=== PATIENT | male | born 1950 | race Two or more races ===

== ENCOUNTER 2017-11-01 16:59 | Inpatient (IN) | payer MEDICARE, MEDICAID ==
[~2017-11-01] VITALS: Ht 157.5 cm; Wt 76.2 kg
[2017-11-01 17:12] VITALS: BP 107/71
[2017-11-01] MEDS ORDERED: Metoprolol 5mg/5ml Inj IVP SCH (17:30)
[2017-11-01] MEDS ORDERED: Aspirin Baby 81mg ORAL ONE (17:30)
[2017-11-01 17:53] LABS: BASOPHILS % (AUTO) 0.4 % (0.0-2.0); EOSINOPHILS % (AUTO) 0.1 % (0.0-3.0); HEMATOCRIT 48.2 % (42.0-52.0); HEMOGLOBIN 16.1 G/DL (14.2-18.0); LYMPHOCYTES % (AUTO) 9.9 % (20.0-45.0); MEAN CORPUSCULAR VOLUME 93 FL (80-99); MONOCYTES % (AUTO) 7.1 % (1.0-10.0); NEUTROPHILS % (AUTO) 82.6 % (45.0-75.0); PLATELET COUNT 296 K/UL (150-450); RED BLOOD COUNT 5.16 M/UL (4.70-6.10); RED CELL DISTRIBUTION WIDTH 11.4 % (11.6-14.8); WHITE BLOOD COUNT 17.3 K/UL (4.8-10.8)
[2017-11-01 17:58] LABS: ANION GAP 6 mmol/L (5-15); BLOOD UREA NITROGEN 19 mg/dL (7-18); CALCIUM 8.9 MG/DL (8.5-10.1); CARBON DIOXIDE 27 MMOL/L (21-32); CHLORIDE 107 MMOL/L (98-107); CREATININE 0.9 MG/DL (0.55-1.30); POTASSIUM 4.4 MMOL/L (3.5-5.1); SODIUM 140 MMOL/L (136-145)
[2017-11-01 18:08] LABS: APPEARANCE,URINE CLEAR; BILIRUBIN, URINE NEGATIVE (NEGATIVE); COLOR,URINE PALE YELLOW; GLUCOSE, URINE (UA) NEGATIVE (NEGATIVE); KETONES,URINE NEGATIVE (NEGATIVE); LEUKOCYTE ESTERASE ,URINE NEGATIVE (NEGATIVE); NITRITE,URINE NEGATIVE (NEGATIVE); PH,URINE 7 (4.5-8.0); PROTEIN,URINE NEGATIVE (NEGATIVE); UROBILINOGEN,URINE NORMAL MG/DL (0.0-1.0)
[2017-11-01 18:10] LABS: ALANINE AMINOTRANSFERASE 32 U/L (12-78); ALBUMIN 3.2 G/DL (3.4-5.0); ALKALINE PHOSPHATASE 61 U/L (46-116); ASPARTATE AMINO TRANSFERASE 10 U/L (15-37); BILIRUBIN,TOTAL 0.4 MG/DL (0.2-1.0); CKMB 1.5 NG/ML (0.0-3.6); CREATINE KINASE 66 U/L (26-308)
[2017-11-01] MEDS ORDERED: DICLOFENAC SODI75 MG ORAL (18:42)
[2017-11-01] MEDS ORDERED: LOSARTAN POTASS50 MG ORAL (18:42)
[2017-11-01] MEDS ORDERED: XANAX2 MG ORAL (18:42)
[2017-11-01] MEDS ORDERED: PROSCAR5 MG ORAL (18:42)
[2017-11-01] MEDS ORDERED: NORCO 10-325 T1 EACH ORAL (18:42)
[2017-11-01] MEDS ORDERED: LEVOTHYROXINE75 MCG ORAL (18:42)
[2017-11-01] MEDS ORDERED: CYMBALTA30 MG ORAL (18:42)
[2017-11-01] MEDS ORDERED: TAMSULOSIN HCL0.4 MG ORAL (18:42)
[2017-11-01] MEDS ORDERED: PANTOPRAZOLE SO40 MG ORAL (18:48)
--- NOTE | 2017-11-01 18:51 | Diagnostic Imaging Report ---
EXAM: XR Chest, 1 View CLINICAL HISTORY: Chest pain TECHNIQUE: Frontal view of the chest. COMPARISON: 11/01/2017 10610 FINDINGS: Lungs: Hypoventilatory lungs. No consolidation. Pleural space: Unremarkable. No pneumothorax. Heart: Unremarkable. No cardiomegaly. Mediastinum: Unremarkable. Bones/joints: No acute osseous abnormality. Tubes, lines and devices: Telemetry leads overlie the patient. IMPRESSION: Hypoventilatory exam without evidence of acute cardiopulmonary disease.
[2017-11-01] MEDS ORDERED: MELOXICAM15 MG PO (18:58)
[2017-11-01] MEDS ORDERED: ATORVASTATIN CA20 MG ORAL (18:58)
[2017-11-01 19:05] VITALS: BP 119/61
[2017-11-01] MEDS ORDERED: cefTRIAXone 1 GM in NS 55 ML IVPB ONE (19:30)
[2017-11-01] MEDS ORDERED: dilTIAZem HCl 25mg/5ml Inj IVP ONE (19:45)
[2017-11-01] MEDS ORDERED: Enoxaparin 80mg Inj SUBQ ONE (20:30)
[2017-11-01 20:33] VITALS: BP 108/71
[2017-11-01] MEDS ORDERED: Nitroglycerin Subl 0.4mg tab SL PRN (22:00)
--- NOTE | 2017-11-01 22:01 | Consultation ---
Consult Note Assessment/Plan DICT # [id number] Ben Cehema MD Nov 01, 2017 22:01
[2017-11-01] MEDS ORDERED: HYDROcodone/Acetamin 10/325 tab ORAL PRN (22:15)
[2017-11-01] MEDS ORDERED: Zolpidem 5mg tab ORAL PRN (22:30)
[2017-11-01] MEDS: dilTIAZem HCl 30mg tab ORAL SCH (22:51)
[2017-11-01] MEDS: Morphine Sulfate 4mg/ml Inj IVP PRN (22:55)
--- NOTE | 2017-11-01 23:00 | Consultation ---
DATE OF CONSULTATION: 11/01/2017 PULMONARY CONSULTATION CONSULTING PHYSICIAN: Ben Cheema M.D. REFERRING PHYSICIAN: Fatimah Bernal M.D. REASON FOR CONSULTATION: Shortness of breath. HISTORY OF PRESENT ILLNESS: The patient is a 67-year-old male, nonsmoker with history of hypertension, hyperlipidemia, hypothyroidism, and BPH, who presented earlier this morning actually with chest pain and shortness of breath, but then left and came back. He has left-sided chest pain, worse with exertion and associated shortness of breath. No fevers or chills. No headache, dizziness, nausea, vomiting, diarrhea, constipation, abdominal pain, or other complaints. He does not have known history of AFib, but he was in AFib with RVR. He was otherwise afebrile. He actually is currently rate controlled, but still in AFib, saturating well on room air. His labs were only remarkable for an elevated white count. His troponin was negative as was his lactic acid. The remainder of his laboratories were normal. His chest x-ray was unremarkable. The patient was given Rocephin and also diltiazem for rate control in the ER and started on Lovenox. He has no other complaints. PAST MEDICAL HISTORY: 1. Hypertension. 2. Hyperlipidemia. 3. BPH. 4. Hypothyroidism. PAST SURGICAL HISTORY: Hernia repair. ALLERGIES: No known drug allergies. MEDICATIONS: [id number] medications reviewed. Current medications reviewed. SOCIAL HISTORY: No tobacco, alcohol, or drug use. FAMILY HISTORY: Noncontributory. REVIEW OF SYSTEMS: Negative other than history of present illness. PHYSICAL EXAMINATION: VITAL SIGNS: Temperature 97.7, pulse 90, blood pressure 108/71, respiratory rate 21, saturation 97% on room air. GENERAL: This is a well-developed, well-nourished male in no acute distress. Awake, alert, and oriented x3. HEENT: Normocephalic and atraumatic. Oropharynx is clear with moist mucous membranes. NECK: Supple without lymphadenopathy or jugular venous distention. CHEST: Clear. HEART: Irregularly irregular. ABDOMEN: Benign. EXTREMITIES: No cyanosis, clubbing, or edema. ANCILLARY DATA: Laboratories reviewed. Chest x-ray within normal limits. EKG, AFib. ASSESSMENT: The patient is a 67-year-old male, nonsmoker with history of hypertension, hyperlipidemia, hypothyroidism, presenting with atypical chest pain in AFib with RVR. It is unclear if he has had AFib in the past or if this is new. I agree with the ER's plan to anticoagulate the patient. We will admit him to the hospital, rule out ACS, work up his atrial fibrillation more. He will be seen in consultation with Electrophysiology service. PROBLEM LIST: 1. Atypical chest pain. 2. Atrial fibrillation, admitted with RVR, now rate controlled. 3. Hypertension. 4. Hyperlipidemia. 5. Hypothyroidism. 6. BPH. TREATMENT PLAN: 1. Admit to telemetry. 2. Rule out ACS. 3. Check duplex of the lower extremities and D-dimer to evaluate for venous thromboembolism. 4. Check TSH and U-tox. 5. Diltiazem for rate control for now. 6. Continue anticoagulation. 7. Echocardiogram. 8. Electrophysiology/Cardiology evaluation. 9. Monitor volumes. 10. Panculture and continue Rocephin for now. 11. DVT prophylaxis is low-molecular weight heparin. 12. The patient is Full Code. Dr. Bernal, thank you for allowing me to assist in the care of your patient. If I may be of any assistance in the future, please do not hesitate to ask. Ben Cheema M.D. : Becky JOB#: [id number] CC:
[2017-11-02] VITALS: BP 124/76
[2017-11-02] MEDS ORDERED: ALPRAZolam 0.25mg tab ORAL ONE
--- NOTE | 2017-11-02 00:26 | Emergency Room Report ---
History of Present Illness General Chief Complaint: Chest Pain Source: Patient Present Illness HPI Patient is a 67-year-old male brought in by EMS after recurrent chest pain. Patient had been seen earlier in the day and had left AGAINST MEDICAL ADVICE. Patient had noted to have a prior history of atrial fibrillation. He had been having recurrence of chest pain since several of prior to arrival. He reports having chronic rapid heartbeat. Patient reports having the generalized chest pain. This did not radiate. The patient denies recent stress test. He had prior history of high cholesterol but had had this controlled with medications. Allergies: Coded Allergies: No Known Allergies (Unverified , 11/01/17) Patient History Past Medical History: see triage record Reviewed Nursing Documentation: PMH: Agreed; PSxH: Agreed Nursing Documentation-PMH Hx Hypertension: Yes - high cholesterol Hx COPD: No - ARTHRITIS History Of Psychiatric Problem: Yes - anxiety Review of Systems All Other Systems: limited - by poor historian Physical Exam Vital Signs Date Time Temp Pulse Resp B/P (MAP) Pulse Ox O2 Delivery O2 Flow Rate FiO2 11/01/17 16:55 98.2 118 18 128/79 98 Room Air 98.2 Sp02 EP Interpretation: reviewed, normal General Appearance: normal inspection, well appearing, no apparent distress, alert, GCS 15, non-toxic Head: atraumatic ENT: normal ENT inspection, hearing grossly normal, normal voice Neck: normal inspection, full range of motion, supple, no bony tend Respiratory: normal inspection, lungs clear, normal breath sounds, no respiratory distress, no retraction, no wheezing Cardiovascular #1: no edema, tachycardia Gastrointestinal: normal inspection, normal bowel sounds, non tender, soft, no guarding, no hernia Genitourinary: no CVA tenderness Musculoskeletal: normal inspection, back normal, normal range of motion Neurologic: normal inspection, alert, oriented x3, responsive, clinical laboratory manager III-XII nml as tested, speech normal Psychiatric: normal inspection, judgement/insight normal, mood/affect normal Skin: normal inspection, normal color, no rash Medical Decision Making Diagnostic Impression: Primary Impression: ACS (acute coronary syndrome) Additional Impression: Atrial fibrillation with RVR ER Course The patient presented for chest pain. Differential diagnosis included but was not limited to acute coronary syndrome, pulmonary embolism, pneumonia, aortic dissection, shingles, pneumothorax, aortic dissection, esophageal rupture, pericarditis. Because of complexity of patient's case laboratory testing and imaging studies were ordered. Patient was given aspirin. The patient was given IV metoprolol. He was anticoagulated with Lovenox after discussion with Dr. Cheema. The patient be admitted to the hospital for further evaluation and treatment. At the time of admission patient denied any chest pain. The patient was noted to have elevated white blood count was given IV antibiotics.Dr. Cheema was contacted for inpatient management Labs Test 11/01/17 17:19 11/01/17 17:31 11/01/17 17:49 11/01/17 17:50 Urine Opiates Screen Negative (NEGATIVE) Urine Barbiturates Screen Negative (NEGATIVE) Phencyclidine (PCP) Screen Negative (NEGATIVE) Urine Amphetamines Screen Negative (NEGATIVE) Urine Benzodiazepines Screen Positive (NEGATIVE) Urine Cocaine Screen Negative (NEGATIVE) Urine Marijuana (THC) Screen Negative (NEGATIVE) White Blood Count 17.3 K/UL (4.8-10.8) Red Blood Count 5.16 M/UL (4.70-6.10) Hemoglobin 16.1 G/DL (14.2-18.0) Hematocrit 48.2 % (42.0-52.0) Mean Corpuscular Volume 93 FL (80-99) Mean Corpuscular Hemoglobin 31.3 PG (27.0-31.0) Mean Corpuscular Hemoglobin Concent 33.5 G/DL (32.0-36.0) Red Cell Distribution Width 11.4 % (11.6-14.8) Platelet Count 296 K/UL (150-450) Mean Platelet Volume 9.8 FL (6.5-10.1) Neutrophils (%) (Auto) 82.6 % (45.0-75.0) Lymphocytes (%) (Auto) 9.9 % (20.0-45.0) Monocytes (%) (Auto) 7.1 % (1.0-10.0) Eosinophils (%) (Auto) 0.1 % (0.0-3.0) Basophils (%) (Auto) 0.4 % (0.0-2.0) Prothrombin Time 10.1 SEC (9.30-11.50) Prothromb Time International Ratio 1.0 (0.9-1.1) Activated Partial Thromboplast Time 27 SEC (23-33) Sodium Level 140 MMOL/L (136-145) Potassium Level 4.4 MMOL/L (3.5-5.1) Chloride Level 107 MMOL/L (98-107) Carbon Dioxide Level 27 MMOL/L (21-32) Anion Gap 6 mmol/L (5-15) Blood Urea Nitrogen 19 mg/dL (7-18) Creatinine 0.9 MG/DL (0.55-1.30) Estimat Glomerular Filtration Rate > 60 mL/min (>60) Glucose Level 132 MG/DL (74-106) Calcium Level 8.9 MG/DL (8.5-10.1) Total Bilirubin 0.4 MG/DL (0.2-1.0) Aspartate Amino Transf (AST/SGOT) 10 U/L (15-37) Alanine Aminotransferase (ALT/SGPT) 32 U/L (12-78) Alkaline Phosphatase 61 U/L (46-116) Total Creatine Kinase 66 U/L (26-308) Creatine Kinase MB 1.5 NG/ML (0.0-3.6) Creatine Kinase MB Relative Index 2.2 Troponin I 0.002 ng/mL (0.000-0.056) Pro-B-Type Natriuretic Peptide 248 pg/mL (0-125) Total Protein 6.4 G/DL (6.4-8.2) Albumin 3.2 G/DL (3.4-5.0) Globulin 3.2 g/dL Albumin/Globulin Ratio 1.0 (1.0-2.7) Urine Color Pale yellow Urine Appearance Clear Urine pH 7 (4.5-8.0) Urine Specific [place] 1.010 (1.005-1.035) Urine Protein Negative (NEGATIVE) Urine Glucose (UA) Negative (NEGATIVE) Urine Ketones Negative (NEGATIVE) Urine Occult Blood Negative (NEGATIVE) Urine Nitrite Negative (NEGATIVE) Urine Bilirubin Negative (NEGATIVE) Urine Urobilinogen Normal MG/DL (0.0-1.0) Urine Leukocyte Esterase Negative (NEGATIVE) D-Dimer 0.19 mg/L FEU (0.00-0.49) Hemoglobin A1c 5.9 % (4.3-6.0) Thyroid Stimulating Hormone (TSH) 1.325 uiU/mL (0.358-3.740) Test 11/01/17 19:42 Lactic Acid Level 1.80 mmol/L (0.4-2.0) EKG Diagnostic Results Rate: tachycardiac, other - afib 115 Rhythm: other - afib ST Segments: no acute changes ASA given to the pt in ED: Yes Rhythm Strip Diag. Results EP Interpretation: yes Rhythm: no PVC's, no ectopy, other - afib RVR rate 118 Chest X-Ray Diagnostic Results Chest X-Ray Diagnostic Results : Chest X-Ray Ordered: Yes # of Views/Limited/Complete: 1 View Indication: Chest Pain EP Interpretation: No Interpretation: no consolidation, no effusion, no pneumothorax Impression: No acute disease Electronically Signed by: Electronically signed by Dr. Sanford Alarcon M.D. Last Vital Signs Date Time Temp Pulse Resp B/P (MAP) Pulse Ox O2 Delivery O2 Flow Rate FiO2 11/01/17 22:51 140 108/71 11/01/17 21:15 97.7 21 97 Room Air 97.7 Status: improved Disposition: ADMITTED INPATIENT Condition: Serious Referrals: Orestes Gallegos M.D. (PCP) Sanford Alarcon MD Nov 02, 2017 00:26
[2017-11-02 04:00] VITALS: BP 111/71
[2017-11-02] MEDS: dilTIAZem HCl 30mg tab ORAL SCH ×3 (05:58→22:11)
[2017-11-02 07:47] LABS: BASOPHILS % (AUTO) 0.3 % (0.0-2.0); EOSINOPHILS % (AUTO) 0.1 % (0.0-3.0); HEMOGLOBIN 15.8 G/DL (14.2-18.0); LYMPHOCYTES % (AUTO) 16.1 % (20.0-45.0); MEAN CORPUSCULAR VOLUME 94 FL (80-99); MONOCYTES % (AUTO) 5.9 % (1.0-10.0); NEUTROPHILS % (AUTO) 77.7 % (45.0-75.0); PLATELET COUNT 280 K/UL (150-450); RED BLOOD COUNT 4.92 M/UL (4.70-6.10); RED CELL DISTRIBUTION WIDTH 11.6 % (11.6-14.8); WHITE BLOOD COUNT 12.1 K/UL (4.8-10.8)
[2017-11-02 08:00] VITALS: BP 129/88
[2017-11-02 08:02] LABS: ALANINE AMINOTRANSFERASE 31 U/L (12-78); ALBUMIN 2.9 G/DL (3.4-5.0); ALBUMIN/GLOBULIN RATIO 0.9 (1.0-2.7); ALKALINE PHOSPHATASE 61 U/L (46-116); ANION GAP 7 mmol/L (5-15); ASPARTATE AMINO TRANSFERASE 12 U/L (15-37); BILIRUBIN,TOTAL 0.3 MG/DL (0.2-1.0); BLOOD UREA NITROGEN 17 mg/dL (7-18); CALCIUM 8.8 MG/DL (8.5-10.1); CARBON DIOXIDE 25 MMOL/L (21-32); CHLORIDE 108 MMOL/L (98-107); CHOLESTEROL 182 MG/DL (< 200); CREATININE 0.8 MG/DL (0.55-1.30); HDL CHOLESTEROL 46 MG/DL (40-60); SODIUM 140 MMOL/L (136-145); TRIGLYCERIDES 74 MG/DL (30-150)
[2017-11-02] MEDS: Losartan 50mg tab ORAL SCH (08:45)
[2017-11-02] MEDS ORDERED: HYDROcodone/Acetamin 10/325 tab ORAL PRN (08:45)
[2017-11-02] MEDS: Enoxaparin 80mg Inj SUBQ SCH ×2 (08:50→22:13)
[2017-11-02] MEDS: Aspirin Baby 81mg ORAL SCH (08:56)
[2017-11-02] MEDS: Diclofenac 75mg tab ORAL SCH ×2 (08:56→18:00)
[2017-11-02] MEDS: DULoxetine 30mg cap ORAL SCH (08:56)
[2017-11-02] MEDS ORDERED: Aspirin Baby 81mg NG SCH (09:00)
[2017-11-02] MEDS ORDERED: Meloxicam 15 MG TAB ORAL SCH (09:00)
--- NOTE | 2017-11-02 09:11 | Pulmonology Progress Note ---
Assessment/Plan Problems: (1) Atrial fibrillation with RVR (2) Chest pain (3) ACS (acute coronary syndrome) Assessment/Plan ASSESSMENT: The patient is a 67-year-old male, nonsmoker with history of hypertension, hyperlipidemia, hypothyroidism, presenting with atypical chest pain in AFib with RVR. It is unclear if he has had AFib in the past or if this is new. I agree with the ER's plan to anticoagulate the patient. We will admit him to the hospital, rule out ACS, work up his atrial fibrillation more. He will be seen in consultation with Electrophysiology service. PROBLEM LIST: 1. Atypical chest pain. 2. Atrial fibrillation, admitted with RVR, now rate controlled. 3. Hypertension. 4. Hyperlipidemia. 5. Hypothyroidism. 6. BPH. TREATMENT PLAN: 1. Continue Dilt for rate control, continue A/C for now, F/U TTE, F/U cards/EPS recs 2. Optimize pulmonary hygiene/mobilize as tolerated 3. F/U Duplex 4. Monitor volumes. 5. Continue CTx for now, F/U Cx's, monitor WCt 6. DVT prophylaxis: LMWH 7. The patient is Full Code. Subjective Allergies: Coded Allergies: No Known Allergies (Unverified , 11/01/17) Subjective AFVSS, in rate controlled AF, stable on RA D-dimer neg, duplex pending, TSH normal, Utox + for BZD No CP, no SOB, no F/C, no CP Objective Last 24 Hour Vital Signs Date Time Temp Pulse Resp B/P (MAP) Pulse Ox O2 Delivery O2 Flow Rate FiO2 11/02/17 08:45 129/88 11/02/17 05:58 99 124/76 11/02/17 04:38 173 11/02/17 04:00 141 11/02/17 04:00 97.0 97 20 111/71 96 Room Air 97.0 11/02/17 00:00 99 11/02/17 00:00 97.0 105 24 124/76 95 Room Air 97.0 11/01/17 22:51 140 108/71 11/01/17 21:15 97.7 90 21 108/71 97 Room Air 97.7 11/01/17 20:33 97.7 90 21 108/71 97 Room Air 97.7 11/01/17 19:56 120 110/85 11/01/17 19:05 120 23 119/61 98 Room Air 11/01/17 17:12 91 22 107/71 98 Room Air 11/01/17 17:11 118 18 Room Air 11/01/17 16:55 98.2 118 18 128/79 98 Room Air 98.2 Intake and Output 11/01/17 11/02/17 19:00 07:00 Intake Total 55 ml Balance 55 ml Intake IV Total 55 ml # Voids 8 General Appearance: WD/WN, no acute distress HEENT: normocephalic, atraumatic, anicteric, mucous membranes moist Respiratory/Chest: chest wall non-tender, lungs clear, normal breath sounds, no respiratory distress Cardiovascular: irregularly irregular Abdomen: normal bowel sounds, soft, non tender, no organomegaly, non distended , no mass Extremities: no cyanosis, no clubbing, no edema Laboratory Tests 11/01/17 17:19: Urine Opiates Screen Negative, Urine Barbiturates Screen Negative, Phencyclidine (PCP) Screen Negative, Urine Amphetamines Screen Negative, Urine Benzodiazepines Screen PositiveH, Urine Cocaine Screen Negative, Urine Marijuana (THC) Screen Negative 11/01/17 17:31: White Blood Count 17.3H, Red Blood Count 5.16, Hemoglobin 16.1, Hematocrit 48.2 , Mean Corpuscular Volume 93, Mean Corpuscular Hemoglobin 31.3H, Mean Corpuscular Hemoglobin Concent 33.5, Red Cell Distribution Width 11.4L, Platelet Count 296, Mean Platelet Volume 9.8, Neutrophils (%) (Auto) 82.6H, Lymphocytes (%) (Auto) 9.9L, Monocytes (%) (Auto) 7.1, Eosinophils (%) (Auto) 0.1, Basophils (%) (Auto) 0.4, Prothrombin Time 10.1, Prothromb Time International Ratio 1.0, Activated Partial Thromboplast Time 27, Sodium Level 140, Potassium Level 4.4, Chloride Level 107, Carbon Dioxide Level 27, Anion Gap 6, Blood Urea Nitrogen 19H, Creatinine 0.9, Estimat Glomerular Filtration Rate > 60, Glucose Level 132H, Calcium Level 8.9, Total Bilirubin 0.4, Aspartate Amino Transf (AST/SGOT) 10L, Alanine Aminotransferase (ALT/SGPT) 32, Alkaline Phosphatase 61, Total Creatine Kinase 66, Creatine Kinase MB 1.5, Creatine Kinase MB Relative Index 2.2, Troponin I 0.002, Pro-B-Type Natriuretic Peptide 248H, Total Protein 6.4, Albumin 3.2L, Globulin 3.2, Albumin/Globulin Ratio 1.0 11/01/17 17:49: Urine Color Pale yellow, Urine Appearance Clear, Urine pH 7, Urine Specific [place] 1.010, Urine Protein Negative, Urine Glucose (UA) Negative, Urine Ketones Negative, Urine Occult Blood Negative, Urine Nitrite Negative, Urine Bilirubin Negative, Urine Urobilinogen Normal, Urine Leukocyte Esterase Negative 11/01/17 17:50: D-Dimer 0.19, Hemoglobin A1c 5.9, Thyroid Stimulating Hormone (TSH) 1.325 11/01/17 19:42: Lactic Acid Level 1.80 11/02/17 05:30: White Blood Count 12.1H, Red Blood Count 4.92, Hemoglobin 15.8, Hematocrit 46.0 , Mean Corpuscular Volume 94, Mean Corpuscular Hemoglobin 32.0H, Mean Corpuscular Hemoglobin Concent 34.2, Red Cell Distribution Width 11.6, Platelet Count 280, Mean Platelet Volume 8.9, Neutrophils (%) (Auto) 77.7H, Lymphocytes ( %) (Auto) 16.1L, Monocytes (%) (Auto) 5.9, Eosinophils (%) (Auto) 0.1, Basophils (%) (Auto) 0.3, Sodium Level 140, Potassium Level 4.0, Chloride Level 108H, Carbon Dioxide Level 25, Anion Gap 7, Blood Urea Nitrogen 17, Creatinine 0.8, Estimat Glomerular Filtration Rate > 60, Glucose Level 120H, Calcium Level 8.8, Total Bilirubin 0.3, Aspartate Amino Transf (AST/SGOT) 12L, Alanine Aminotransferase (ALT/SGPT) 31, Alkaline Phosphatase 61, Total Protein 6.2L, Albumin 2.9L, Globulin 3.3, Albumin/Globulin Ratio 0.9L, Triglycerides Level 74 , Cholesterol Level 182, LDL Cholesterol 134H, HDL Cholesterol 46, Cholesterol/ HDL Ratio 4.0 Current Medications Medications (Trade) Dose Ordered Sig/Adrienne Route PRN Reason Start Time Stop Time Status Last Admin Dose Admin Acetaminophen (Tylenol) 650 mg Q4H PRN ORAL Mild Pain/Temp > 100.5 11/02/17 08:45 12/02/17 08:44 Acetaminophen/ Hydrocodone Bitart ([place] 10/325) 1 tab Q6H PRN ORAL Moderate Pain (Pain Scale 4-6) 11/02/17 08:45 11/09/17 08:44 Aspirin (ASA) 81 mg DAILY ORAL 11/02/17 09:00 12/02/17 08:59 11/02/17 08:56 Atorvastatin Calcium (Lipitor) 20 mg BEDTIME ORAL 11/02/17 21:00 12/02/17 20:59 Ceftriaxone Sodium 1 gm/ Sodium Chloride 55 ml @ 110 mls/hr DAILY IVPB 11/02/17 10:00 11/09/17 09:59 Diclofenac Sodium (Voltaren) 75 mg BID ORAL 11/02/17 09:00 12/02/17 08:59 Diltiazem HCl (Cardizem) 30 mg EVERY 8 HOURS ORAL 11/01/17 22:00 12/01/17 21:59 11/02/17 05:58 Duloxetine HCl (Cymbalta) 60 mg DAILY ORAL 11/02/17 09:00 12/02/17 08:59 Enoxaparin Sodium (Lovenox) 75 mg EVERY 12 HOURS SUBQ 11/02/17 09:00 12/02/17 08:59 11/02/17 08:50 Finasteride (Proscar) 5 mg DAILY ORAL 11/02/17 09:00 12/02/17 08:59 11/02/17 08:35 Levothyroxine Sodium (Synthroid) 50 mcg DAILY@0630 ORAL 11/02/17 06:30 12/02/17 06:29 11/02/17 05:58 Losartan Potassium (Cozaar) 50 mg DAILY ORAL 11/02/17 09:00 12/02/17 08:59 11/02/17 08:45 Metoprolol Tartrate (Lopressor) 5 mg Q5MIN X 3 IVP 11/01/17 17:30 12/01/17 17:29 Morphine Sulfate (Morphine Sulfate) 1 mg Q4H PRN IVP pain 11/01/17 22:45 11/08/17 22:44 11/01/17 22:55 Nitroglycerin (Ntg) 0.4 mg Q5M PRN SL Prn Chest Pain 11/01/17 22:00 12/01/17 21:59 Pantoprazole (Protonix) 40 mg DAILY ORAL 11/02/17 09:00 12/02/17 08:59 11/02/17 08:45 Tamsulosin HCl (Flomax) 0.4 mg BEDTIME ORAL 11/02/17 21:00 12/02/17 20:59 Zolpidem Tartrate (Ambien) 5 mg HSPRN PRN ORAL Insomnia 11/01/17 22:30 11/08/17 22:29 Ben Cheema MD Nov 02, 2017 09:11
[2017-11-02] MEDS: cefTRIAXone 1 GM in NS 55 ML IVPB SCH (10:26)
[2017-11-02 12:00] VITALS: BP 113/69
[2017-11-02 16:15] VITALS: BP 114/84
--- NOTE | 2017-11-02 16:24 | History and Physical ---
History of Present Illness General Date patient seen: Nov 02, 2017 Time patient seen: 13:00 Reason for Hospitalization: Chest Pain Present Illness HPI This is a 67 y/o male with a PMH of HTN, HLD, BPH, and hypothyroidism who presented to ED for recurrent chest pain. Patient had come to the ER a day prior but had left against medical advice. Patient presents with similar symptoms and states that he has been having palpitations chronically but associates it to his anxiety. Reports generalized chest pain. Denies radiation. Denies recent stress test. CXR was negative. Patient's initial troponin was negative but EKG showed Afibb with RVR. Patient was given IV diltiazem and is now on PO diltiazem. Patient has now converted back to ER. Denies sob, n/v, abdominal pain. . Allergies: Coded Allergies: No Known Allergies (Unverified , 11/01/17) Medication History Scheduled Atorvastatin Calcium* (Atorvastatin Calcium*), 20 MG ORAL BEDTIME, (Reported) Diclofenac Sod* (Voltaren*), 75 MG ORAL BID, (Reported) Duloxetine Hcl* (Cymbalta*), 60 MG ORAL DAILY, (Reported) Finasteride* (Proscar*), 5 MG ORAL DAILY, (Reported) Levothyroxine Sodium* (Levothyroxine Sodium*), 50 MCG ORAL DAILY, (Reported) Losartan Potassium* (Losartan Potassium*), 50 MG ORAL DAILY, (Reported) Meloxicam* (Meloxicam*), 15 MG PO DAILY, (Reported) Pantoprazole* (Pantoprazole*), 40 MG ORAL DAILY, (Reported) Tamsulosin Hcl (Tamsulosin Hcl*), 0.4 MG ORAL BEDTIME, (Reported) Scheduled PRN Alprazolam* (Xanax*), 2 MG ORAL TID PRN for For Anxiety, (Reported) Hydrocodone Bit/Acetaminophen 10-325* ([place] 10-325*), 1 TAB ORAL Q6H PRN for For Pain, (Reported) Patient History History Provided By: Patient, Medical Record Healthcare decision maker Amberly Resuscitation status Full Code Advanced Directive on File Review of Systems All Other Systems: negative except mentioned in HPI Physical Exam General Appearance: no apparent distress, alert HEENT: normocephalic, atraumatic, PERRL Neck: non-tender, normal alignment, supple Respiratory/Chest: chest wall non-tender, lungs clear, normal breath sounds Cardiovascular/Chest: normal peripheral pulses, regular rhythm, tachycardia Abdomen: normal bowel sounds, non tender, soft Extremities: normal range of motion, non-tender Skin Exam: normal pigmentation, warm/dry 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, no motor/sensory deficits, alert Last 24 Hour Vital Signs Date Time Temp Pulse Resp B/P (MAP) Pulse Ox O2 Delivery O2 Flow Rate FiO2 11/02/17 16:15 97.7 102 20 114/84 96 Room Air 97.7 11/02/17 14:25 108 118/72 11/02/17 12:00 97.3 89 20 113/69 98 Room Air 97.3 11/02/17 12:00 104 11/02/17 08:45 129/88 11/02/17 08:00 127 11/02/17 08:00 97.2 98 22 129/88 97 Room Air 97.2 11/02/17 05:58 99 124/76 11/02/17 04:38 173 11/02/17 04:00 141 11/02/17 04:00 97.0 97 20 111/71 96 Room Air 97.0 11/02/17 00:00 99 11/02/17 00:00 97.0 105 24 124/76 95 Room Air 97.0 11/01/17 22:51 140 108/71 11/01/17 21:15 97.7 90 21 108/71 97 Room Air 97.7 11/01/17 20:33 97.7 90 21 108/71 97 Room Air 97.7 11/01/17 19:56 120 110/85 11/01/17 19:05 120 23 119/61 98 Room Air 11/01/17 17:12 91 22 107/71 98 Room Air 11/01/17 17:11 118 18 Room Air 11/01/17 16:55 98.2 118 18 128/79 98 Room Air 98.2 Intake and Output 11/01/17 11/02/17 19:00 07:00 Intake Total 55 ml Balance 55 ml Intake IV Total 55 ml # Voids 8 Laboratory Tests Test 11/01/17 17:19 11/01/17 17:31 11/01/17 17:49 11/01/17 17:50 Urine Opiates Screen Negative (NEGATIVE) Urine Barbiturates Screen Negative (NEGATIVE) Phencyclidine (PCP) Screen Negative (NEGATIVE) Urine Amphetamines Screen Negative (NEGATIVE) Urine Benzodiazepines Screen Positive (NEGATIVE) H Urine Cocaine Screen Negative (NEGATIVE) Urine Marijuana (THC) Screen Negative (NEGATIVE) White Blood Count 17.3 K/UL (4.8-10.8) H Red Blood Count 5.16 M/UL (4.70-6.10) Hemoglobin 16.1 G/DL (14.2-18.0) Hematocrit 48.2 % (42.0-52.0) Mean Corpuscular Volume 93 FL (80-99) Mean Corpuscular Hemoglobin 31.3 PG (27.0-31.0) H Mean Corpuscular Hemoglobin Concent 33.5 G/DL (32.0-36.0) Red Cell Distribution Width 11.4 % (11.6-14.8) L Platelet Count 296 K/UL (150-450) Mean Platelet Volume 9.8 FL (6.5-10.1) Neutrophils (%) (Auto) 82.6 % (45.0-75.0) H Lymphocytes (%) (Auto) 9.9 % (20.0-45.0) L Monocytes (%) (Auto) 7.1 % (1.0-10.0) Eosinophils (%) (Auto) 0.1 % (0.0-3.0) Basophils (%) (Auto) 0.4 % (0.0-2.0) Prothrombin Time 10.1 SEC (9.30-11.50) Prothromb Time International Ratio 1.0 (0.9-1.1) Activated Partial Thromboplast Time 27 SEC (23-33) Sodium Level 140 MMOL/L (136-145) Potassium Level 4.4 MMOL/L (3.5-5.1) Chloride Level 107 MMOL/L (98-107) Carbon Dioxide Level 27 MMOL/L (21-32) Anion Gap 6 mmol/L (5-15) Blood Urea Nitrogen 19 mg/dL (7-18) H Creatinine 0.9 MG/DL (0.55-1.30) Estimat Glomerular Filtration Rate > 60 mL/min (>60) Glucose Level 132 MG/DL (74-106) H Calcium Level 8.9 MG/DL (8.5-10.1) Total Bilirubin 0.4 MG/DL (0.2-1.0) Aspartate Amino Transf (AST/SGOT) 10 U/L (15-37) L Alanine Aminotransferase (ALT/SGPT) 32 U/L (12-78) Alkaline Phosphatase 61 U/L (46-116) Total Creatine Kinase 66 U/L (26-308) Creatine Kinase MB 1.5 NG/ML (0.0-3.6) Creatine Kinase MB Relative Index 2.2 Troponin I 0.002 ng/mL (0.000-0.056) Pro-B-Type Natriuretic Peptide 248 pg/mL (0-125) H Total Protein 6.4 G/DL (6.4-8.2) Albumin 3.2 G/DL (3.4-5.0) L Globulin 3.2 g/dL Albumin/Globulin Ratio 1.0 (1.0-2.7) Urine Color Pale yellow Urine Appearance Clear Urine pH 7 (4.5-8.0) Urine Specific Grahn 1.010 (1.005-1.035) Urine Protein Negative (NEGATIVE) Urine Glucose (UA) Negative (NEGATIVE) Urine Ketones Negative (NEGATIVE) Urine Occult Blood Negative (NEGATIVE) Urine Nitrite Negative (NEGATIVE) Urine Bilirubin Negative (NEGATIVE) Urine Urobilinogen Normal MG/DL (0.0-1.0) Urine Leukocyte Esterase Negative (NEGATIVE) D-Dimer 0.19 mg/L FEU (0.00-0.49) Hemoglobin A1c 5.9 % (4.3-6.0) Thyroid Stimulating Hormone (TSH) 1.325 uiU/mL (0.358-3.740) Test 11/01/17 19:42 11/02/17 05:30 Lactic Acid Level 1.80 mmol/L (0.4-2.0) White Blood Count 12.1 K/UL (4.8-10.8) H Red Blood Count 4.92 M/UL (4.70-6.10) Hemoglobin 15.8 G/DL (14.2-18.0) Hematocrit 46.0 % (42.0-52.0) Mean Corpuscular Volume 94 FL (80-99) Mean Corpuscular Hemoglobin 32.0 PG (27.0-31.0) H Mean Corpuscular Hemoglobin Concent 34.2 G/DL (32.0-36.0) Red Cell Distribution Width 11.6 % (11.6-14.8) Platelet Count 280 K/UL (150-450) Mean Platelet Volume 8.9 FL (6.5-10.1) Neutrophils (%) (Auto) 77.7 % (45.0-75.0) H Lymphocytes (%) (Auto) 16.1 % (20.0-45.0) L Monocytes (%) (Auto) 5.9 % (1.0-10.0) Eosinophils (%) (Auto) 0.1 % (0.0-3.0) Basophils (%) (Auto) 0.3 % (0.0-2.0) Sodium Level 140 MMOL/L (136-145) Potassium Level 4.0 MMOL/L (3.5-5.1) Chloride Level 108 MMOL/L (98-107) H Carbon Dioxide Level 25 MMOL/L (21-32) Anion Gap 7 mmol/L (5-15) Blood Urea Nitrogen 17 mg/dL (7-18) Creatinine 0.8 MG/DL (0.55-1.30) Estimat Glomerular Filtration Rate > 60 mL/min (>60) Glucose Level 120 MG/DL (74-106) H Calcium Level 8.8 MG/DL (8.5-10.1) Total Bilirubin 0.3 MG/DL (0.2-1.0) Aspartate Amino Transf (AST/SGOT) 12 U/L (15-37) L Alanine Aminotransferase (ALT/SGPT) 31 U/L (12-78) Alkaline Phosphatase 61 U/L (46-116) Troponin I 0.000 ng/mL (0.000-0.056) Total Protein 6.2 G/DL (6.4-8.2) L Albumin 2.9 G/DL (3.4-5.0) L Globulin 3.3 g/dL Albumin/Globulin Ratio 0.9 (1.0-2.7) L Triglycerides Level 74 MG/DL (30-150) Cholesterol Level 182 MG/DL (< 200) LDL Cholesterol 134 mg/dL (<100) H HDL Cholesterol 46 MG/DL (40-60) Cholesterol/HDL Ratio 4.0 (3.3-4.4) Height (Feet): 5 Height (Inches): 2.00 Weight (Pounds): 168 Medications Current Medications Medications (Trade) Dose Ordered Sig/Adrienne Route PRN Reason Start Time Stop Time Status Last Admin Dose Admin Acetaminophen (Tylenol) 650 mg Q4H PRN ORAL Mild Pain/Temp > 100.5 11/02/17 08:45 12/02/17 08:44 Acetaminophen/ Hydrocodone Bitart ([place] 10/325) 1 tab Q6H PRN ORAL Moderate Pain (Pain Scale 4-6) 11/02/17 08:45 11/09/17 08:44 Aspirin (ASA) 81 mg DAILY ORAL 11/02/17 09:00 12/02/17 08:59 11/02/17 08:56 Atorvastatin Calcium (Lipitor) 20 mg BEDTIME ORAL 11/02/17 21:00 12/02/17 20:59 Ceftriaxone Sodium 1 gm/ Sodium Chloride 55 ml @ 110 mls/hr DAILY IVPB 11/02/17 10:00 11/09/17 09:59 11/02/17 10:26 Diclofenac Sodium (Voltaren) 75 mg BID ORAL 11/02/17 09:00 12/02/17 08:59 Diltiazem HCl (Cardizem) 30 mg EVERY 8 HOURS ORAL 11/01/17 22:00 12/01/17 21:59 11/02/17 14:25 Duloxetine HCl (Cymbalta) 60 mg DAILY ORAL 11/02/17 09:00 12/02/17 08:59 Enoxaparin Sodium (Lovenox) 75 mg EVERY 12 HOURS SUBQ 11/02/17 09:00 12/02/17 08:59 11/02/17 08:50 Finasteride (Proscar) 5 mg DAILY ORAL 11/02/17 09:00 12/02/17 08:59 11/02/17 08:35 Levothyroxine Sodium (Synthroid) 50 mcg DAILY@0630 ORAL 11/02/17 06:30 12/02/17 06:29 11/02/17 05:58 Losartan Potassium (Cozaar) 50 mg DAILY ORAL 11/02/17 09:00 12/02/17 08:59 11/02/17 08:45 Metoprolol Tartrate (Lopressor) 5 mg Q5MIN X 3 IVP 11/01/17 17:30 12/01/17 17:29 Morphine Sulfate (Morphine Sulfate) 1 mg Q4H PRN IVP pain 11/01/17 22:45 11/08/17 22:44 11/01/17 22:55 Nitroglycerin (Ntg) 0.4 mg Q5M PRN SL Prn Chest Pain 11/01/17 22:00 12/01/17 21:59 Pantoprazole (Protonix) 40 mg DAILY ORAL 11/02/17 09:00 12/02/17 08:59 11/02/17 08:45 Tamsulosin HCl (Flomax) 0.4 mg BEDTIME ORAL 11/02/17 21:00 12/02/17 20:59 Zolpidem Tartrate (Ambien) 5 mg HSPRN PRN ORAL Insomnia 11/01/17 22:30 11/08/17 22:29 Assessment/Plan Problem List: (1) Atypical chest pain ICD Codes: R07.89 - Other chest pain SNOMED: 436829662 (2) HTN (hypertension) ICD Codes: I10 - Essential (primary) hypertension SNOMED: 35472158 (3) HLD (hyperlipidemia) ICD Codes: E78.5 - Hyperlipidemia, unspecified SNOMED: 20133574 (4) Allergic rhinitis ICD Codes: J30.9 - Allergic rhinitis, unspecified SNOMED: 05679155 (5) Leukocytosis ICD Codes: D72.829 - Elevated white blood cell count, unspecified SNOMED: 369006898, 377406308 (6) Atrial fibrillation with RVR ICD Codes: I48.91 - Unspecified atrial fibrillation SNOMED: 540061398272525 Status: stable, progressing Assessment/Plan - Admit to inpatient, tele - Cardiology consulted - EKG showing AFcRVR - Trend trops. Trops x 2 negative. - TTE showing LVEF 55% with no wall motion abnormality - Venous duplex BLE negative - start empiric IV ceftriaxone - CXR negative - f/u blood cx, UA - trend WBC 17 --> 12 - s/p IV diltiazem, now on PO diltiazem - continue lovenox - check AM lipid panel and A1c - TSH wnl - resume home meds - pain control and supportive care Thank you, Dr. Cheema, for this wonderful consultation. DVT Prophylaxis: on lovenox Code Status: Full Hospital Classification Declaration: Based on this initial evaluation, and depending on the patient's clinical course, I anticipate that this patient will require hospitalization for 1-2 days for a.fibb with RVR and close respiratory/ hemodynamic monitoring. Disposition: Once the patient is stable to leave the hospital, I anticipate the patient will likely be discharged to the following environment: home with I spent 71 minutes on this patient's case, and 36 minutes were dedicated to counseling and/or care coordination. Discussed with patient/family, nursing staff, SW/CM, primary, and cardiology regarding clinical status, treatment course, and disposition planning. Time of note may not reflect time of encounter. Yaz Hardy NP Nov 02, 2017 16:24
[2017-11-02 20:00] VITALS: BP 121/81
[2017-11-02] MEDS ORDERED: Ocean Nasal Spray 45ml NASAL PRN (21:30)
[2017-11-02] MEDS: Tamsulosin 0.4mg cap ORAL SCH (22:09)
[2017-11-02] MEDS: Morphine Sulfate 4mg/ml Inj IVP PRN (22:09)
[2017-11-03] MEDS: ALPRAZolam 0.25mg tab ORAL PRN ×2 (00:49→22:20)
[2017-11-03 04:00] VITALS: BP 117/68
[2017-11-03] MEDS: dilTIAZem HCl 30mg tab ORAL SCH ×2 (06:27→13:49)
[2017-11-03 08:00] VITALS: BP 152/88
[2017-11-03] MEDS: DULoxetine 30mg cap ORAL SCH (09:00)
[2017-11-03] MEDS: Diclofenac 75mg tab ORAL SCH ×2 (09:00→18:00)
--- NOTE | 2017-11-03 09:01 | Pulmonology Progress Note ---
Assessment/Plan Problems: (1) Atrial fibrillation with RVR (2) Chest pain (3) ACS (acute coronary syndrome) Assessment/Plan ASSESSMENT: The patient is a 67-year-old male, nonsmoker with history of hypertension, hyperlipidemia, hypothyroidism, presenting with atypical chest pain in AFib with RVR. It is unclear if he has had AFib in the past or if this is new. I agree with the ER's plan to anticoagulate the patient. We will admit him to the hospital, rule out ACS, work up his atrial fibrillation more. He will be seen in consultation with Electrophysiology service. PROBLEM LIST: 1. Atypical chest pain. 2. Atrial fibrillation, admitted with RVR, now rate controlled. 3. Hypertension. 4. Hyperlipidemia. 5. Hypothyroidism. 6. BPH. TREATMENT PLAN: 1. Continue Dilt for rate control, continue A/C for now, F/U cards/EPS recs 2. Optimize pulmonary hygiene/mobilize as tolerated 3. F/U Duplex 4. Monitor volumes. 5. Continue CTx for now, F/U Cx's, monitor WCt 6. DVT prophylaxis: LMWH 7. The patient is Full Code. Subjective Allergies: Coded Allergies: No Known Allergies (Unverified , 11/01/17) Subjective AFVSS, was in RVR earlier now in rate controlled AF, stable on RA D-dimer neg, duplex pending, TSH normal, Utox + for BZD No CP, no SOB, no F/C, no CP Objective Last 24 Hour Vital Signs Date Time Temp Pulse Resp B/P (MAP) Pulse Ox O2 Delivery O2 Flow Rate FiO2 11/03/17 06:27 88 117/68 11/03/17 04:00 97.2 88 20 117/68 98 Room Air 97.2 11/03/17 01:27 96 11/03/17 01:19 108 11/03/17 01:17 149 11/03/17 01:14 144 112/77 11/03/17 00:00 133 11/02/17 22:11 109 121/87 11/02/17 20:00 97.0 109 20 121/81 96 Room Air 97.0 11/02/17 20:00 110 11/02/17 16:15 97.7 102 20 114/84 96 Room Air 97.7 11/02/17 16:00 118 11/02/17 14:25 108 118/72 11/02/17 12:00 97.3 89 20 113/69 98 Room Air 97.3 11/02/17 12:00 104 Intake and Output 11/02/17 11/03/17 19:00 07:00 Intake Total 640 ml Balance 640 ml Intake Oral 640 ml # Voids 2 4 General Appearance: WD/WN, no acute distress HEENT: normocephalic, atraumatic, anicteric, mucous membranes moist Respiratory/Chest: chest wall non-tender, lungs clear, normal breath sounds, no respiratory distress, no accessory muscle use Cardiovascular: irregularly irregular Abdomen: normal bowel sounds, soft, non tender, no organomegaly, non distended , no mass Extremities: no cyanosis, no clubbing, no edema Microbiology Date/Time Source Procedure Growth Status 11/01/17 19:35 Blood Blood Culture - Preliminary NO GROWTH AFTER 24 HOURS Resulted 11/01/17 19:10 Blood Blood Culture - Preliminary NO GROWTH AFTER 24 HOURS Resulted Current Medications Medications (Trade) Dose Ordered Sig/Adrienne Route PRN Reason Start Time Stop Time Status Last Admin Dose Admin Acetaminophen (Tylenol) 650 mg Q4H PRN ORAL Mild Pain/Temp > 100.5 11/02/17 08:45 12/02/17 08:44 Acetaminophen/ Hydrocodone Bitart ([place] 10/325) 1 tab Q6H PRN ORAL Moderate Pain (Pain Scale 4-6) 11/02/17 08:45 11/09/17 08:44 Alprazolam (Xanax) 0.25 mg Q6H PRN ORAL For Anxiety 11/03/17 00:45 11/10/17 00:44 11/03/17 00:49 Aspirin (ASA) 81 mg DAILY ORAL 11/02/17 09:00 12/02/17 08:59 11/02/17 08:56 Atorvastatin Calcium (Lipitor) 20 mg BEDTIME ORAL 11/02/17 21:00 12/02/17 20:59 11/02/17 22:10 Ceftriaxone Sodium 1 gm/ Sodium Chloride 55 ml @ 110 mls/hr DAILY IVPB 11/02/17 10:00 11/09/17 09:59 11/02/17 10:26 Diclofenac Sodium (Voltaren) 75 mg BID ORAL 11/02/17 09:00 12/02/17 08:59 Diltiazem HCl (Cardizem) 30 mg EVERY 8 HOURS ORAL 11/01/17 22:00 12/01/17 21:59 11/03/17 06:27 Duloxetine HCl (Cymbalta) 60 mg DAILY ORAL 11/02/17 09:00 12/02/17 08:59 Enoxaparin Sodium (Lovenox) 75 mg EVERY 12 HOURS SUBQ 11/02/17 09:00 12/02/17 08:59 11/02/17 22:13 Finasteride (Proscar) 5 mg DAILY ORAL 11/02/17 09:00 12/02/17 08:59 11/02/17 08:35 Levothyroxine Sodium (Synthroid) 50 mcg DAILY@0630 ORAL 11/02/17 06:30 12/02/17 06:29 11/03/17 06:27 Losartan Potassium (Cozaar) 50 mg DAILY ORAL 11/02/17 09:00 12/02/17 08:59 11/02/17 08:45 Metoprolol Tartrate (Lopressor) 5 mg Q5MIN X 3 IVP 11/01/17 17:30 12/01/17 17:29 11/03/17 01:14 Morphine Sulfate (Morphine Sulfate) 1 mg Q4H PRN IVP pain 11/01/17 22:45 11/08/17 22:44 11/02/17 22:09 Nitroglycerin (Ntg) 0.4 mg Q5M PRN SL Prn Chest Pain 11/01/17 22:00 12/01/17 21:59 Pantoprazole (Protonix) 40 mg DAILY ORAL 11/02/17 09:00 12/02/17 08:59 11/02/17 08:45 Sodium Chloride ([place] Nasal [place]) 1 spray Q4H PRN NASAL For allergies 11/02/17 21:30 12/02/17 21:29 Tamsulosin HCl (Flomax) 0.4 mg BEDTIME ORAL 11/02/17 21:00 12/02/17 20:59 11/02/17 22:09 Zolpidem Tartrate (Ambien) 5 mg HSPRN PRN ORAL Insomnia 11/01/17 22:30 11/08/17 22:29 Ben Cheema MD Nov 03, 2017 09:01
[2017-11-03] MEDS: Aspirin Baby 81mg ORAL SCH (09:54)
[2017-11-03] MEDS: Losartan 50mg tab ORAL SCH (09:54)
[2017-11-03] MEDS: Enoxaparin 80mg Inj SUBQ SCH (09:55)
[2017-11-03] MEDS: cefTRIAXone 1 GM in NS 55 ML IVPB SCH (09:57)
--- NOTE | 2017-11-03 10:05 | Cardiology Report ---
APPROVED REPORT EXAM: Two-dimensional and M-mode echocardiogram with Doppler and color Doppler. INDICATION Altered mental status M-Mode DIMENSIONS IVSd1.2 (0.7-1.1cm)Left Atrium (MM)2.2 (1.6-4.0cm) LVDd3.7 (3.5-5.6cm)Aortic Root3.2 (2.0-3.7cm) PWd1.0 (0.7-1.1cm)Aortic Cusp Exc.1.6 (1.5-2.0cm) LVDs2.5 (2.5-4.0cm) PWs1.9 cm Normal left ventricular chamber size, systolic function and wall motion. Left ventricular ejection fraction estimated to be 55 %. Mild left ventricular hypertrophy. Anterior Echo-free space, may be due to pericardial fat or effusion. All other cardiac chamber sizes are within normal limits. Focal aortic valve sclerosis with adequate cusp excursion. Thickened mitral valve leaflets with normal excursion. Mitral annulus and aortic root calcification. Pulmonic valve not well visualized. Normal tricuspid valve structure. IVC measures at 1.8 cm with physiological collapse. A color flow and spectral Doppler study was performed and revealed: Trace aortic insufficiency. Mild mitral regurgitation. Normal left ventricular diastolic function. Trace tricuspid regurgitation. Tricuspid systolic velocities suggests peak right ventricular systolic pressure of 24 mmHg. No pulmonic regurgitation present.
--- NOTE | 2017-11-03 10:11 | Cardiology Report ---
APPROVED REPORT EKG Measurement Heart [id number] Atrial fibrillation Nonspecific ST and T wave abnormality Abnormal ECG
--- NOTE | 2017-11-03 10:13 | Cardiology Report ---
APPROVED REPORT EKG Measurement Heart [id number] Atrial fibrillation with rapid ventricular response Abnormal ECG
[2017-11-03] MEDS: Norco 5mg/325mg tab ORAL PRN (10:41)
[2017-11-03] MEDS ORDERED: Morphine Sulfate 4mg/ml Inj IVP PRN (10:45)
[2017-11-03 12:00] VITALS: BP 149/89
[2017-11-03 12:18] LABS: ALANINE AMINOTRANSFERASE 35 U/L (12-78); ALBUMIN 3.1 G/DL (3.4-5.0); ALBUMIN/GLOBULIN RATIO 0.9 (1.0-2.7); ALKALINE PHOSPHATASE 61 U/L (46-116); ANION GAP 9 mmol/L (5-15); ASPARTATE AMINO TRANSFERASE 13 U/L (15-37); BILIRUBIN,TOTAL 0.3 MG/DL (0.2-1.0); BLOOD UREA NITROGEN 17 mg/dL (7-18); CALCIUM 8.9 MG/DL (8.5-10.1); CARBON DIOXIDE 24 MMOL/L (21-32); CHLORIDE 105 MMOL/L (98-107); CREATININE 0.8 MG/DL (0.55-1.30); SODIUM 138 MMOL/L (136-145)
[2017-11-03 12:23] LABS: BASOPHILS % (AUTO) 0.5 % (0.0-2.0); EOSINOPHILS % (AUTO) 0.1 % (0.0-3.0); HEMATOCRIT 48.9 % (42.0-52.0); HEMOGLOBIN 16.5 G/DL (14.2-18.0); LYMPHOCYTES % (AUTO) 15.8 % (20.0-45.0); MEAN CORPUSCULAR VOLUME 94 FL (80-99); MONOCYTES % (AUTO) 7.3 % (1.0-10.0); NEUTROPHILS % (AUTO) 76.3 % (45.0-75.0); PLATELET COUNT 318 K/UL (150-450); RED BLOOD COUNT 5.23 M/UL (4.70-6.10); RED CELL DISTRIBUTION WIDTH 11.4 % (11.6-14.8); WHITE BLOOD COUNT 15.5 K/UL (4.8-10.8)
--- NOTE | 2017-11-03 14:34 | General Progress Note ---
Assessment/Plan Problem List: (1) Atypical chest pain ICD Codes: R07.89 - Other chest pain SNOMED: 802145788 (2) HTN (hypertension) ICD Codes: I10 - Essential (primary) hypertension SNOMED: 97494373 (3) HLD (hyperlipidemia) ICD Codes: E78.5 - Hyperlipidemia, unspecified SNOMED: 19763302 (4) Allergic rhinitis ICD Codes: J30.9 - Allergic rhinitis, unspecified SNOMED: 31353604 (5) Leukocytosis ICD Codes: D72.829 - Elevated white blood cell count, unspecified SNOMED: 170301579, 864846409 (6) Atrial fibrillation with RVR ICD Codes: I48.91 - Unspecified atrial fibrillation SNOMED: 726647589487602 Status: stable, progressing Assessment/Plan - Cardiology consulted - EKG showing AFcRVR - Trend trops. Trops x 2 negative. - TTE showing LVEF 55% with no wall motion abnormality - Venous duplex BLE negative - start empiric IV ceftriaxone - CXR negative - f/u blood cx, UA - trend WBC 17 --> 12 - s/p IV diltiazem, now on PO diltiazem - continue lovenox - check AM lipid panel and A1c - TSH wnl - resume home meds - pain control and supportive care Thank you, Dr. Cheema, for this consultation. DVT Prophylaxis: on lovenox Code Status: Full Hospital Classification Declaration: Based on this initial evaluation, and depending on the patient's clinical course, I anticipate that this patient will require hospitalization for 1-2 days for a.fibb with RVR and close respiratory/ hemodynamic monitoring. Disposition: Once the patient is stable to leave the hospital, I anticipate the patient will likely be discharged to the following environment: home with I spent 71 minutes on this patient's case, and 36 minutes were dedicated to counseling and/or care coordination. Discussed with patient/family, nursing staff, SW/CM, primary, and cardiology regarding clinical status, treatment course, and disposition planning. Time of note may not reflect time of encounter. Subjective Date patient seen: Nov 03, 2017 Time patient seen: 14:33 Allergies: Coded Allergies: No Known Allergies (Unverified , 11/01/17) Subjective - had an earlier episode of AFcRVR but now rate controlled - labs pending for today - denies cp, sob Objective Last 24 Hour Vital Signs Date Time Temp Pulse Resp B/P (MAP) Pulse Ox O2 Delivery O2 Flow Rate FiO2 11/03/17 13:49 97 152/88 11/03/17 12:00 97 11/03/17 12:00 98.0 112 20 149/89 98 Room Air 98.0 11/03/17 11:40 97.6 11/03/17 10:41 97.6 11/03/17 09:54 152/88 11/03/17 08:00 97.6 78 20 152/88 98 Room Air 97.6 11/03/17 08:00 145 11/03/17 06:27 88 117/68 11/03/17 04:00 97.2 88 20 117/68 98 Room Air 97.2 11/03/17 01:27 96 11/03/17 01:19 108 11/03/17 01:17 149 11/03/17 01:14 144 112/77 11/03/17 00:00 133 11/02/17 22:11 109 121/87 11/02/17 20:00 97.0 109 20 121/81 96 Room Air 97.0 11/02/17 20:00 110 11/02/17 16:15 97.7 102 20 114/84 96 Room Air 97.7 11/02/17 16:00 118 Intake and Output 11/02/17 11/03/17 18:59 06:59 Intake Total 640 ml Balance 640 ml Intake Oral 640 ml # Voids 2 4 Laboratory Tests 11/03/17 11:05: White Blood Count 15.5H, Red Blood Count 5.23, Hemoglobin 16.5, Hematocrit 48.9 , Mean Corpuscular Volume 94, Mean Corpuscular Hemoglobin 31.6H, Mean Corpuscular Hemoglobin Concent 33.7, Red Cell Distribution Width 11.4L, Platelet Count 318, Mean Platelet Volume 9.4, Neutrophils (%) (Auto) 76.3H, Lymphocytes (%) (Auto) 15.8L, Monocytes (%) (Auto) 7.3, Eosinophils (%) (Auto) 0.1, Basophils (%) (Auto) 0.5, Sodium Level 138, Potassium Level 4.0, Chloride Level 105, Carbon Dioxide Level 24, Anion Gap 9, Blood Urea Nitrogen 17, Creatinine 0.8, Estimat Glomerular Filtration Rate > 60, Glucose Level 111H, Calcium Level 8.9, Total Bilirubin 0.3, Aspartate Amino Transf (AST/SGOT) 13L, Alanine Aminotransferase (ALT/SGPT) 35, Alkaline Phosphatase 61, Total Protein 6.6, Albumin 3.1L, Globulin 3.5, Albumin/Globulin Ratio 0.9L Height (Feet): 5 Height (Inches): 2.00 Weight (Pounds): 168 General Appearance: no apparent distress, alert EENT: PERRL/EOMI, normal ENT inspection Neck: non-tender, normal alignment, supple Cardiovascular: normal peripheral pulses, normal rate, regularly irregular Respiratory/Chest: chest wall non-tender, lungs clear, normal breath sounds Abdomen: normal bowel sounds, non tender, soft 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
--- NOTE | 2017-11-03 14:53 | Physician Query ---
--------- THIS DOCUMENT IS A PERMANENT PART OF THE MEDICAL RECORD --------- PLEASE COMPLETE THE DOCUMENT BEFORE SIGNING Dear Dr. Cheema Date 11/03/2017 [employer]' Name Rob Drummond [employer] Phone#:[phone] Exercise your independent professional judgment when responding to query. Questions asked do not imply particular answer is desired or expected. We greatly appreciate your clarification on this issue. Clinical Documentation States: "Atypical chest pain" is documented in H&P and progress notes Clinical Findings Show: Troponin = 0.00 ECHO: EF = 55% Please document the suspected etiology of Chest Pain: a.Type: []Cardiac []Non-cardiac []Unspecified b.Etiology - cardiac [] Aortic dissection []Mitral valve prolapsed [] Acute myocardial infarction []Spasm of coronary arteries [] Coronary Artery Disease []Pericarditis c.Etiology - non-cardiac [] Anxiety []Pleurisy [] Cancer []Pneumonia, type [] Costochondritis []Pneumothorax [] GERD/Esophagitis []Pulmonary embolism [] Unable to determine []Other: Condition Present on Admission: [] Yes [] No []Clinically Undeterminable Please also document in your Progress Notes and/or Discharge Summary and indicate if the condition was present on admission. MTDD
[2017-11-03 16:00] VITALS: BP 148/82
[2017-11-03] MEDS ORDERED: NS 275ml ONE (17:03)
[2017-11-03] MEDS ORDERED: Tubing IV Secondary IV ONE (17:03)
--- NOTE | 2017-11-03 18:11 | Cardiac Electrophysiology PN ---
Subjective Subjective [id number] Objective Last 24 Hour Vital Signs Date Time Temp Pulse Resp B/P (MAP) Pulse Ox O2 Delivery O2 Flow Rate FiO2 11/03/17 16:00 98.0 80 20 148/82 97 Room Air 98.0 11/03/17 16:00 118 11/03/17 13:49 97 152/88 11/03/17 12:00 97 11/03/17 12:00 98.0 112 20 149/89 98 Room Air 98.0 11/03/17 11:40 97.6 11/03/17 10:41 97.6 11/03/17 09:54 152/88 11/03/17 08:00 97.6 78 20 152/88 98 Room Air 97.6 11/03/17 08:00 145 11/03/17 06:27 88 117/68 11/03/17 04:00 97.2 88 20 117/68 98 Room Air 97.2 11/03/17 01:27 96 11/03/17 01:19 108 11/03/17 01:17 149 11/03/17 01:14 144 112/77 11/03/17 00:00 133 11/02/17 22:11 109 121/87 11/02/17 20:00 97.0 109 20 121/81 96 Room Air 97.0 11/02/17 20:00 110 Intake and Output 11/02/17 11/03/17 19:00 07:00 Intake Total 640 ml Balance 640 ml Intake Oral 640 ml # Voids 2 4 Laboratory Tests Test 11/03/17 11:05 White Blood Count 15.5 K/UL (4.8-10.8) H Red Blood Count 5.23 M/UL (4.70-6.10) Hemoglobin 16.5 G/DL (14.2-18.0) Hematocrit 48.9 % (42.0-52.0) Mean Corpuscular Volume 94 FL (80-99) Mean Corpuscular Hemoglobin 31.6 PG (27.0-31.0) H Mean Corpuscular Hemoglobin Concent 33.7 G/DL (32.0-36.0) Red Cell Distribution Width 11.4 % (11.6-14.8) L Platelet Count 318 K/UL (150-450) Mean Platelet Volume 9.4 FL (6.5-10.1) Neutrophils (%) (Auto) 76.3 % (45.0-75.0) H Lymphocytes (%) (Auto) 15.8 % (20.0-45.0) L Monocytes (%) (Auto) 7.3 % (1.0-10.0) Eosinophils (%) (Auto) 0.1 % (0.0-3.0) Basophils (%) (Auto) 0.5 % (0.0-2.0) Sodium Level 138 MMOL/L (136-145) Potassium Level 4.0 MMOL/L (3.5-5.1) Chloride Level 105 MMOL/L (98-107) Carbon Dioxide Level 24 MMOL/L (21-32) Anion Gap 9 mmol/L (5-15) Blood Urea Nitrogen 17 mg/dL (7-18) Creatinine 0.8 MG/DL (0.55-1.30) Estimat Glomerular Filtration Rate > 60 mL/min (>60) Glucose Level 111 MG/DL (74-106) H Calcium Level 8.9 MG/DL (8.5-10.1) Total Bilirubin 0.3 MG/DL (0.2-1.0) Aspartate Amino Transf (AST/SGOT) 13 U/L (15-37) L Alanine Aminotransferase (ALT/SGPT) 35 U/L (12-78) Alkaline Phosphatase 61 U/L (46-116) Total Protein 6.6 G/DL (6.4-8.2) Albumin 3.1 G/DL (3.4-5.0) L Globulin 3.5 g/dL Albumin/Globulin Ratio 0.9 (1.0-2.7) L Microbiology Date/Time Source Procedure Growth Status 11/01/17 19:35 Blood Blood Culture - Preliminary NO GROWTH AFTER 24 HOURS Resulted 11/01/17 19:10 Blood Blood Culture - Preliminary NO GROWTH AFTER 24 HOURS Resulted Juliocesar Boo MD Nov 03, 2017 18:11
[2017-11-03 18:24] VITALS: BP 114/72
[2017-11-03 20:00] VITALS: BP 137/93
[2017-11-03] MEDS: Tamsulosin 0.4mg cap ORAL SCH (20:43)
[2017-11-03] MEDS ORDERED: Enoxaparin Sodium 300mg/3ml vial SUBQ SCH (21:00)
--- NOTE | 2017-11-03 21:45 | Consultation ---
DATE OF CONSULTATION: 11/03/2017 CARDIOLOGY CONSULTATION CONSULTING PHYSICIAN: Juliocesar Boo M.D. REFERRING PHYSICIAN: Fatimah Bernal M.D. ADDITIONAL REFERRING PHYSICIAN: Ben Cheema M.D. REASON FOR CONSULTATION: hypertension and atrial fibrillation with rapid ventricular response. HISTORY OF PRESENT ILLNESS: The patient is a 67-year-old gentleman with history of hypertension, hyperlipidemia, and hypothyroidism, who presented to the emergency room complaining of chest pain and shortness of breath. The patient also had left-sided chest pain. The patient was found to be in atrial fibrillation with rapid ventricular response with heart rate as high as 180 beats per minute. The patient was admitted and Cardiology consultation was obtained for further evaluation. His troponin was negative and the heart rate became more stable after the patient received Cardizem in the emergency room. Today, his heart rate was as high as 160 beats per minute despite antiarrhythmic therapy. REVIEW OF SYSTEMS: Negative other than what was mentioned in the history of present illness. PAST MEDICAL HISTORY: As mentioned above. MEDICATIONS: Per reconciliation. SOCIAL HISTORY: He lives at home. He does not smoke or drink alcohol. PHYSICAL EXAMINATION: VITAL SIGNS: Blood pressure is 148/82, pulse is 80-118, respirations 18, and he is afebrile. HEAD AND NECK: No JVD. LUNGS: Clear. CARDIOVASCULAR: Irregular S1 and S2 with no gallop or murmur. ABDOMEN: Soft. EXTREMITIES: No pitting edema. LABORATORY AND DIAGNOSTIC DATA: His echocardiogram showed ejection fraction of 55%. His labs show white count 15.5, hemoglobin 16.5, hematocrit of 48.9, and platelet count of 318,000. Sodium 138, potassium 4.0, BUN of 17, creatinine 0.8, and glucose of 111. Troponins are negative x2. ASSESSMENT AND PLAN: 1. Atrial fibrillation with rapid ventricular response. The patient was ruled out for myocardial infarction. Ejection fraction is normal. His urine toxicology screen is positive for benzodiazepine. The patient is already on Lovenox 75 mg subcutaneous b.i.d. for anticoagulation. He is on Cardizem 60 mg every 8 hours which was increased to 60 mg every 6 hours. Follow the patient clinically. 2. hypertension, on losartan 50 mg daily and Cardizem 60 mg q.6 h. 3. Hypothyroidism, on Synthroid. 4. Hyperlipidemia, on Lipitor. 5. Allergic rhinitis. 6. Leukocytosis, currently on antibiotics. White count decreased from 17,000 to 12,000. Thank you very much for allowing me to participate in the care of this patient. Please do not hesitate to contact me for any questions regarding my evaluation. Juliocesar Boo M.D. DR: DANIELLE JOB#: [id number] CC:
[2017-11-03] MEDS ORDERED: Meloxicam 15 MG TAB ORAL PRN ×2 (22:15→23:45)
[2017-11-03] MEDS: dilTIAZem HCl 60mg tab ORAL SCH (23:53)
[2017-11-04] VITALS: BP 137/90
[2017-11-04 04:00] VITALS: BP 110/68
[2017-11-04] MEDS: dilTIAZem HCl 60mg tab ORAL SCH ×3 (06:00→21:46)
[2017-11-04 08:00] VITALS: BP 111/68
[2017-11-04] MEDS: Losartan 50mg tab ORAL SCH (08:38)
[2017-11-04] MEDS: Aspirin Baby 81mg ORAL SCH (08:38)
[2017-11-04] MEDS: cefTRIAXone 1 GM in NS 55 ML IVPB SCH (08:39)
[2017-11-04 08:50] LABS: BASOPHILS % (AUTO) 0.3 % (0.0-2.0); EOSINOPHILS % (AUTO) 0.1 % (0.0-3.0); HEMATOCRIT 49.5 % (42.0-52.0); HEMOGLOBIN 16.8 G/DL (14.2-18.0); LYMPHOCYTES % (AUTO) 14.1 % (20.0-45.0); MEAN CORPUSCULAR VOLUME 93 FL (80-99); MONOCYTES % (AUTO) 5.1 % (1.0-10.0); NEUTROPHILS % (AUTO) 80.5 % (45.0-75.0); PLATELET COUNT 325 K/UL (150-450); RED BLOOD COUNT 5.32 M/UL (4.70-6.10); RED CELL DISTRIBUTION WIDTH 11.6 % (11.6-14.8); WHITE BLOOD COUNT 12.7 K/UL (4.8-10.8)
[2017-11-04] MEDS: Norco 5mg/325mg tab ORAL PRN ×2 (08:56→16:37)
[2017-11-04] MEDS: DULoxetine 30mg cap ORAL SCH (08:58)
--- NOTE | 2017-11-04 09:02 | Pulmonology Progress Note ---
Assessment/Plan Problems: (1) Atrial fibrillation with RVR (2) Chest pain (3) ACS (acute coronary syndrome) Assessment/Plan ASSESSMENT: The patient is a 67-year-old male, nonsmoker with history of hypertension, hyperlipidemia, hypothyroidism, presenting with atypical chest pain in AFib with RVR. It is unclear if he has had AFib in the past or if this is new. I agree with the ER's plan to anticoagulate the patient. We will admit him to the hospital, rule out ACS, work up his atrial fibrillation more. He will be seen in consultation with Electrophysiology service. PROBLEM LIST: 1. Atypical chest pain. 2. Atrial fibrillation, admitted with RVR, now rate controlled. 3. Hypertension. 4. Hyperlipidemia. 5. Hypothyroidism. 6. BPH. TREATMENT PLAN: 1. Continue Dilt per EP for rate control, continue A/C for now, F/U cards/EPS recs 2. Optimize pulmonary hygiene/mobilize as tolerated 3. F/U Duplex 4. Monitor volumes. 5. Continue CTx for now, F/U Cx's, monitor WCt, ID eval 6. DVT prophylaxis: LMWH 7. The patient is Full Code. Subjective Allergies: Coded Allergies: No Known Allergies (Unverified , 11/01/17) Subjective AFVSS, in AF in and out of RPR Duplex still pending WCt increased No CP, no SOB, no F/C, no CP Objective Last 24 Hour Vital Signs Date Time Temp Pulse Resp B/P (MAP) Pulse Ox O2 Delivery O2 Flow Rate FiO2 11/04/17 08:38 72 111/68 11/04/17 08:38 111/68 11/04/17 08:00 97.7 72 18 111/68 97 Room Air 97.7 11/04/17 04:00 98.2 92 18 110/68 100 Room Air 98.2 11/04/17 04:00 95 11/04/17 00:00 98.4 94 17 137/90 95 Room Air 98.4 11/04/17 00:00 114 11/03/17 23:53 100 137/93 11/03/17 20:00 126 11/03/17 20:00 98.2 100 16 137/93 92 Room Air 98.2 11/03/17 18:24 97.7 107 20 114/72 98 Room Air 97.7 11/03/17 16:00 98.0 80 20 148/82 97 Room Air 98.0 11/03/17 16:00 118 11/03/17 13:49 97 152/88 11/03/17 12:00 97 11/03/17 12:00 98.0 112 20 149/89 98 Room Air 98.0 11/03/17 11:40 97.6 11/03/17 10:41 97.6 11/03/17 09:54 152/88 Intake and Output 11/03/17 11/04/17 19:00 07:00 Intake Total 750 ml Balance 750 ml Intake Oral 750 ml # Voids 4 4 # Bowel Movements 1 General Appearance: WD/WN, no acute distress HEENT: normocephalic, atraumatic, anicteric, mucous membranes moist Respiratory/Chest: chest wall non-tender, lungs clear, normal breath sounds, no respiratory distress, no accessory muscle use Cardiovascular: irregularly irregular Abdomen: normal bowel sounds, soft, non tender, no organomegaly, non distended , no mass Extremities: no cyanosis, no clubbing, no edema Microbiology Date/Time Source Procedure Growth Status 11/01/17 19:35 Blood Blood Culture - Preliminary NO GROWTH AFTER 48 HOURS Resulted 11/01/17 19:10 Blood Blood Culture - Preliminary NO GROWTH AFTER 48 HOURS Resulted Laboratory Tests 11/03/17 11:05: White Blood Count 15.5H, Red Blood Count 5.23, Hemoglobin 16.5, Hematocrit 48.9 , Mean Corpuscular Volume 94, Mean Corpuscular Hemoglobin 31.6H, Mean Corpuscular Hemoglobin Concent 33.7, Red Cell Distribution Width 11.4L, Platelet Count 318, Mean Platelet Volume 9.4, Neutrophils (%) (Auto) 76.3H, Lymphocytes (%) (Auto) 15.8L, Monocytes (%) (Auto) 7.3, Eosinophils (%) (Auto) 0.1, Basophils (%) (Auto) 0.5, Sodium Level 138, Potassium Level 4.0, Chloride Level 105, Carbon Dioxide Level 24, Anion Gap 9, Blood Urea Nitrogen 17, Creatinine 0.8, Estimat Glomerular Filtration Rate > 60, Glucose Level 111H, Calcium Level 8.9, Total Bilirubin 0.3, Aspartate Amino Transf (AST/SGOT) 13L, Alanine Aminotransferase (ALT/SGPT) 35, Alkaline Phosphatase 61, Total Protein 6.6, Albumin 3.1L, Globulin 3.5, Albumin/Globulin Ratio 0.9L 11/04/17 08:05: White Blood Count 12.7H, Red Blood Count 5.32, Hemoglobin 16.8, Hematocrit 49.5 , Mean Corpuscular Volume 93, Mean Corpuscular Hemoglobin 31.5H, Mean Corpuscular Hemoglobin Concent 33.9, Red Cell Distribution Width 11.6, Platelet Count 325, Mean Platelet Volume 9.2, Neutrophils (%) (Auto) 80.5H, Lymphocytes ( %) (Auto) 14.1L, Monocytes (%) (Auto) 5.1, Eosinophils (%) (Auto) 0.1, Basophils (%) (Auto) 0.3, Sodium Level [Pending], Potassium Level [Pending], Chloride Level [Pending], Carbon Dioxide Level [Pending], Blood Urea Nitrogen [ Pending], Creatinine [Pending], Estimat Glomerular Filtration Rate [Pending], Glucose Level [Pending], Calcium Level [Pending], Total Bilirubin [Pending], Aspartate Amino Transf (AST/SGOT) [Pending], Alanine Aminotransferase (ALT/SGPT ) [Pending], Alkaline Phosphatase [Pending], Total Protein [Pending], Albumin [ Pending], Globulin [Pending] Current Medications Medications (Trade) Dose Ordered Sig/Adrienne Route PRN Reason Start Time Stop Time Status Last Admin Dose Admin Acetaminophen (Tylenol) 650 mg Q4H PRN ORAL Temp > 100.5 11/03/17 10:45 12/02/17 10:44 Acetaminophen/ Hydrocodone Bitart ([place] 10/325) 1 tab Q6H PRN ORAL Moderate Pain (Pain Scale 4-6) 11/02/17 08:45 11/09/17 08:44 Acetaminophen/ Hydrocodone Bitart ([place] 5/325) 1 tab Q6H PRN ORAL Mild Pain (Pain Scale 1-3) 11/03/17 10:30 11/10/17 10:29 11/04/17 08:56 Alprazolam (Xanax) 0.25 mg Q6H PRN ORAL For Anxiety 11/03/17 00:45 11/10/17 00:44 11/03/17 22:20 Aspirin (ASA) 81 mg DAILY ORAL 11/02/17 09:00 12/02/17 08:59 11/04/17 08:38 Atorvastatin Calcium (Lipitor) 20 mg BEDTIME ORAL 11/02/17 21:00 12/02/17 20:59 11/03/17 20:43 Ceftriaxone Sodium 1 gm/ Sodium Chloride 55 ml @ 110 mls/hr DAILY IVPB 11/02/17 10:00 11/09/17 09:59 11/04/17 08:39 Diltiazem HCl (Cardizem) 60 mg EVERY 6 HOURS ORAL 11/04/17 00:00 12/01/17 21:59 11/04/17 08:38 Duloxetine HCl (Cymbalta) 60 mg DAILY ORAL 11/02/17 09:00 12/02/17 08:59 Enoxaparin Sodium (Lovenox) 75 mg EVERY 12 HOURS SUBQ 11/03/17 21:00 12/03/17 20:59 11/03/17 20:49 Finasteride (Proscar) 5 mg DAILY ORAL 11/02/17 09:00 12/02/17 08:59 11/04/17 08:37 Levothyroxine Sodium (Synthroid) 50 mcg DAILY@0630 ORAL 11/02/17 06:30 12/02/17 06:29 11/04/17 06:31 Losartan Potassium (Cozaar) 50 mg DAILY ORAL 11/02/17 09:00 12/02/17 08:59 11/04/17 08:38 Meloxicam (Mobic) 15 mg DAILY PRN ORAL Pain 11/03/17 23:45 12/03/17 23:44 11/03/17 23:53 Morphine Sulfate (Morphine Sulfate) 1 mg Q4H PRN IVP Breakthrough Pain 11/03/17 10:45 11/10/17 10:44 Nitroglycerin (Ntg) 0.4 mg Q5M PRN SL Prn Chest Pain 11/01/17 22:00 12/01/17 21:59 Pantoprazole (Protonix) 40 mg DAILY ORAL 11/02/17 09:00 12/02/17 08:59 11/04/17 08:38 Sodium Chloride ([place] Nasal [place]) 1 spray Q4H PRN NASAL For allergies 11/02/17 21:30 12/02/17 21:29 Tamsulosin HCl (Flomax) 0.4 mg BEDTIME ORAL 11/02/17 21:00 12/02/17 20:59 11/03/17 20:43 Zolpidem Tartrate (Ambien) 5 mg HSPRN PRN ORAL Insomnia 11/01/17 22:30 11/08/17 22:29 Ben Cheema MD Nov 04, 2017 09:02
[2017-11-04 09:41] LABS: ALANINE AMINOTRANSFERASE 41 U/L (12-78); ALBUMIN/GLOBULIN RATIO 0.9 (1.0-2.7); ALKALINE PHOSPHATASE 61 U/L (46-116); ANION GAP 8 mmol/L (5-15); ASPARTATE AMINO TRANSFERASE 15 U/L (15-37); BILIRUBIN,TOTAL 0.5 MG/DL (0.2-1.0); BLOOD UREA NITROGEN 18 mg/dL (7-18); CALCIUM 8.9 MG/DL (8.5-10.1); CARBON DIOXIDE 23 MMOL/L (21-32); CHLORIDE 105 MMOL/L (98-107); CREATININE 0.9 MG/DL (0.55-1.30); POTASSIUM 3.7 MMOL/L (3.5-5.1); SODIUM 136 MMOL/L (136-145)
--- NOTE | 2017-11-04 10:32 | Infectious Diseases Prog Note ---
Assessment/Plan Assessment/Plan Full consult dictated: A) 1) leukocytosis, ? reactive, ? sepsis, no obvious infection clinically, cultures negative, ua negative, chest x-ray negative 2) pmh noted 3) allergies - negative P) 1) continue rocephin for now 2) f/u on labs and cultures 3) consider discontinuation of abx and observation if cultures remain negative 4) procalcitonin not available at this facility in d/w lab 5) no indication for further imaging currently 6) thank you Subjective Allergies: Coded Allergies: No Known Allergies (Unverified , 11/01/17) Objective Vital Signs Last 24 Hour Vital Signs Date Time Temp Pulse Resp B/P (MAP) Pulse Ox O2 Delivery O2 Flow Rate FiO2 11/04/17 08:38 72 111/68 11/04/17 08:38 111/68 11/04/17 08:00 97.7 72 18 111/68 97 Room Air 97.7 11/04/17 04:00 98.2 92 18 110/68 100 Room Air 98.2 11/04/17 04:00 95 11/04/17 00:00 98.4 94 17 137/90 95 Room Air 98.4 11/04/17 00:00 114 11/03/17 23:53 100 137/93 11/03/17 20:00 126 11/03/17 20:00 98.2 100 16 137/93 92 Room Air 98.2 11/03/17 18:24 97.7 107 20 114/72 98 Room Air 97.7 11/03/17 16:00 98.0 80 20 148/82 97 Room Air 98.0 11/03/17 16:00 118 11/03/17 13:49 97 152/88 11/03/17 12:00 97 11/03/17 12:00 98.0 112 20 149/89 98 Room Air 98.0 11/03/17 11:40 97.6 11/03/17 10:41 97.6 Height (Feet): 5 Height (Inches): 2.00 Weight (Pounds): 168 Microbiology Date/Time Source Procedure Growth Status 11/01/17 19:35 Blood Blood Culture - Preliminary NO GROWTH AFTER 48 HOURS Resulted 11/01/17 19:10 Blood Blood Culture - Preliminary NO GROWTH AFTER 48 HOURS Resulted Laboratory Tests Test 11/03/17 11:05 11/04/17 08:05 White Blood Count 15.5 K/UL (4.8-10.8) H 12.7 K/UL (4.8-10.8) H Red Blood Count 5.23 M/UL (4.70-6.10) 5.32 M/UL (4.70-6.10) Hemoglobin 16.5 G/DL (14.2-18.0) 16.8 G/DL (14.2-18.0) Hematocrit 48.9 % (42.0-52.0) 49.5 % (42.0-52.0) Mean Corpuscular Volume 94 FL (80-99) 93 FL (80-99) Mean Corpuscular Hemoglobin 31.6 PG (27.0-31.0) H 31.5 PG (27.0-31.0) H Mean Corpuscular Hemoglobin Concent 33.7 G/DL (32.0-36.0) 33.9 G/DL (32.0-36.0) Red Cell Distribution Width 11.4 % (11.6-14.8) L 11.6 % (11.6-14.8) Platelet Count 318 K/UL (150-450) 325 K/UL (150-450) Mean Platelet Volume 9.4 FL (6.5-10.1) 9.2 FL (6.5-10.1) Neutrophils (%) (Auto) 76.3 % (45.0-75.0) H 80.5 % (45.0-75.0) H Lymphocytes (%) (Auto) 15.8 % (20.0-45.0) L 14.1 % (20.0-45.0) L Monocytes (%) (Auto) 7.3 % (1.0-10.0) 5.1 % (1.0-10.0) Eosinophils (%) (Auto) 0.1 % (0.0-3.0) 0.1 % (0.0-3.0) Basophils (%) (Auto) 0.5 % (0.0-2.0) 0.3 % (0.0-2.0) Sodium Level 138 MMOL/L (136-145) 136 MMOL/L (136-145) Potassium Level 4.0 MMOL/L (3.5-5.1) 3.7 MMOL/L (3.5-5.1) Chloride Level 105 MMOL/L (98-107) 105 MMOL/L (98-107) Carbon Dioxide Level 24 MMOL/L (21-32) 23 MMOL/L (21-32) Anion Gap 9 mmol/L (5-15) 8 mmol/L (5-15) Blood Urea Nitrogen 17 mg/dL (7-18) 18 mg/dL (7-18) Creatinine 0.8 MG/DL (0.55-1.30) 0.9 MG/DL (0.55-1.30) Estimat Glomerular Filtration Rate > 60 mL/min (>60) > 60 mL/min (>60) Glucose Level 111 MG/DL (74-106) H 172 MG/DL (74-106) H Calcium Level 8.9 MG/DL (8.5-10.1) 8.9 MG/DL (8.5-10.1) Total Bilirubin 0.3 MG/DL (0.2-1.0) 0.5 MG/DL (0.2-1.0) Aspartate Amino Transf (AST/SGOT) 13 U/L (15-37) L 15 U/L (15-37) Alanine Aminotransferase (ALT/SGPT) 35 U/L (12-78) 41 U/L (12-78) Alkaline Phosphatase 61 U/L (46-116) 61 U/L (46-116) Total Protein 6.6 G/DL (6.4-8.2) 6.4 G/DL (6.4-8.2) Albumin 3.1 G/DL (3.4-5.0) L 3.0 G/DL (3.4-5.0) L Globulin 3.5 g/dL 3.4 g/dL Albumin/Globulin Ratio 0.9 (1.0-2.7) L 0.9 (1.0-2.7) L Current Medications Medications (Trade) Dose Ordered Sig/Adrienne Route PRN Reason Start Time Stop Time Status Last Admin Dose Admin Acetaminophen (Tylenol) 650 mg Q4H PRN ORAL Temp > 100.5 11/03/17 10:45 12/02/17 10:44 Acetaminophen/ Hydrocodone Bitart ([place] 10/325) 1 tab Q6H PRN ORAL Moderate Pain (Pain Scale 4-6) 11/02/17 08:45 11/09/17 08:44 Acetaminophen/ Hydrocodone Bitart ([place] 5/325) 1 tab Q6H PRN ORAL Mild Pain (Pain Scale 1-3) 11/03/17 10:30 11/10/17 10:29 11/04/17 08:56 Alprazolam (Xanax) 0.25 mg Q6H PRN ORAL For Anxiety 11/03/17 00:45 11/10/17 00:44 11/03/17 22:20 Aspirin (ASA) 81 mg DAILY ORAL 11/02/17 09:00 12/02/17 08:59 11/04/17 08:38 Atorvastatin Calcium (Lipitor) 20 mg BEDTIME ORAL 11/02/17 21:00 12/02/17 20:59 11/03/17 20:43 Ceftriaxone Sodium 1 gm/ Sodium Chloride 55 ml @ 110 mls/hr DAILY IVPB 11/02/17 10:00 11/09/17 09:59 11/04/17 08:39 Diltiazem HCl (Cardizem) 60 mg EVERY 6 HOURS ORAL 11/04/17 00:00 12/01/17 21:59 11/04/17 08:38 Duloxetine HCl (Cymbalta) 60 mg DAILY ORAL 11/02/17 09:00 12/02/17 08:59 Enoxaparin Sodium (Lovenox) 75 mg EVERY 12 HOURS SUBQ 11/03/17 21:00 12/03/17 20:59 11/03/17 20:49 Enoxaparin Sodium (Lovenox) 75 mg Q12H SUBQ 11/04/17 09:00 12/04/17 08:59 Finasteride (Proscar) 5 mg DAILY ORAL 11/02/17 09:00 12/02/17 08:59 11/04/17 08:37 Levothyroxine Sodium (Synthroid) 50 mcg DAILY@0630 ORAL 11/02/17 06:30 12/02/17 06:29 11/04/17 06:31 Losartan Potassium (Cozaar) 50 mg DAILY ORAL 11/02/17 09:00 12/02/17 08:59 11/04/17 08:38 Meloxicam (Mobic) 15 mg DAILY PRN ORAL Pain 11/03/17 23:45 12/03/17 23:44 11/03/17 23:53 Morphine Sulfate (Morphine Sulfate) 1 mg Q4H PRN IVP Breakthrough Pain 11/03/17 10:45 11/10/17 10:44 Nitroglycerin (Ntg) 0.4 mg Q5M PRN SL Prn Chest Pain 11/01/17 22:00 12/01/17 21:59 Pantoprazole (Protonix) 40 mg DAILY ORAL 11/02/17 09:00 12/02/17 08:59 11/04/17 08:38 Sodium Chloride ([place] Nasal [place]) 1 spray Q4H PRN NASAL For allergies 11/02/17 21:30 12/02/17 21:29 Tamsulosin HCl (Flomax) 0.4 mg BEDTIME ORAL 11/02/17 21:00 12/02/17 20:59 11/03/17 20:43 Zolpidem Tartrate (Ambien) 5 mg HSPRN PRN ORAL Insomnia 11/01/17 22:30 11/08/17 22:29 Judith Drake MD Nov 04, 2017 10:32
[2017-11-04] MEDS: Enoxaparin Sodium 300mg/3ml vial SUBQ SCH ×3 (10:38→21:48)
[2017-11-04 12:00] VITALS: BP 116/68
--- NOTE | 2017-11-04 12:27 | General Progress Note ---
Assessment/Plan Problem List: (1) Atypical chest pain ICD Codes: R07.89 - Other chest pain SNOMED: 919878242 (2) HTN (hypertension) ICD Codes: I10 - Essential (primary) hypertension SNOMED: 53756478 (3) HLD (hyperlipidemia) ICD Codes: E78.5 - Hyperlipidemia, unspecified SNOMED: 86030293 (4) Allergic rhinitis ICD Codes: J30.9 - Allergic rhinitis, unspecified SNOMED: 30750056 (5) Leukocytosis ICD Codes: D72.829 - Elevated white blood cell count, unspecified SNOMED: 512148027, 407028210 (6) Atrial fibrillation with RVR ICD Codes: I48.91 - Unspecified atrial fibrillation SNOMED: 043105814892229 Status: stable Assessment/Plan - Cardiology consulted, appreciate rec's - ID consulted for elevated WBC, unknown source - EKG showing AFcRVR - Trend trops. Trops negative - ACS ruled out. - TTE showing LVEF 55% with no wall motion abnormality - Venous duplex BLE negative - start empiric IV ceftriaxone - CXR negative - f/u blood cx, UA - trend WBC 17 --> 12 --> 15 --> 12 - s/p IV diltiazem, now on PO diltiazem 30mg q6hr - continue lovenox 75mg BID. consider switching to NOAC upon discharge - check AM lipid panel and A1c - TSH wnl - resume home meds - pain control and supportive care Thank you, Dr. Cheema, for this consultation. DVT Prophylaxis: on lovenox Code Status: Full Hospital Classification Declaration: Based on this initial evaluation, and depending on the patient's clinical course, I anticipate that this patient will require hospitalization for 1-2 days for a.fibb with RVR and close respiratory/ hemodynamic monitoring. Disposition: Once the patient is stable to leave the hospital, I anticipate the patient will likely be discharged to the following environment: home with I spent 31 minutes on this patient's case, and 17 minutes were dedicated to counseling and/or care coordination. Discussed with patient/family, nursing staff, SW/CM, primary, ID and cardiology regarding clinical status, treatment course, and disposition planning. Time of note may not reflect time of encounter. Subjective Date patient seen: Nov 04, 2017 Time patient seen: 12:24 Allergies: Coded Allergies: No Known Allergies (Unverified , 11/01/17) Subjective - continues to remain in A.fibb with intermittent RVR. patient refused diltiazem earlier today - seen by cards - WBC still elevated - denies cp, sob Objective Last 24 Hour Vital Signs Date Time Temp Pulse Resp B/P (MAP) Pulse Ox O2 Delivery O2 Flow Rate FiO2 11/04/17 08:38 72 111/68 11/04/17 08:38 111/68 11/04/17 08:00 130 11/04/17 08:00 97.7 72 18 111/68 97 Room Air 97.7 11/04/17 04:00 98.2 92 18 110/68 100 Room Air 98.2 11/04/17 04:00 95 11/04/17 00:00 98.4 94 17 137/90 95 Room Air 98.4 11/04/17 00:00 114 11/03/17 23:53 100 137/93 11/03/17 20:00 126 11/03/17 20:00 98.2 100 16 137/93 92 Room Air 98.2 11/03/17 18:24 97.7 107 20 114/72 98 Room Air 97.7 11/03/17 16:00 98.0 80 20 148/82 97 Room Air 98.0 11/03/17 16:00 118 11/03/17 13:49 97 152/88 Intake and Output 11/03/17 11/04/17 19:00 07:00 Intake Total 750 ml Balance 750 ml Intake Oral 750 ml # Voids 4 4 # Bowel Movements 1 Laboratory Tests 11/04/17 08:05: White Blood Count 12.7H, Red Blood Count 5.32, Hemoglobin 16.8, Hematocrit 49.5 , Mean Corpuscular Volume 93, Mean Corpuscular Hemoglobin 31.5H, Mean Corpuscular Hemoglobin Concent 33.9, Red Cell Distribution Width 11.6, Platelet Count 325, Mean Platelet Volume 9.2, Neutrophils (%) (Auto) 80.5H, Lymphocytes ( %) (Auto) 14.1L, Monocytes (%) (Auto) 5.1, Eosinophils (%) (Auto) 0.1, Basophils (%) (Auto) 0.3, Sodium Level 136, Potassium Level 3.7, Chloride Level 105, Carbon Dioxide Level 23, Anion Gap 8, Blood Urea Nitrogen 18, Creatinine 0.9, Estimat Glomerular Filtration Rate > 60, Glucose Level 172H, Calcium Level 8.9, Total Bilirubin 0.5, Aspartate Amino Transf (AST/SGOT) 15, Alanine Aminotransferase (ALT/SGPT) 41, Alkaline Phosphatase 61, Total Protein 6.4, Albumin 3.0L, Globulin 3.4, Albumin/Globulin Ratio 0.9L Height (Feet): 5 Height (Inches): 2.00 Weight (Pounds): 168 General Appearance: no apparent distress, alert EENT: PERRL/EOMI, normal ENT inspection Neck: non-tender, normal alignment, supple Cardiovascular: normal peripheral pulses, normal rate, regular rhythm Respiratory/Chest: chest wall non-tender, lungs clear, normal breath sounds Abdomen: normal bowel sounds, non tender, soft Extremities: normal range of motion, non-tender 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
[2017-11-04] MEDS ORDERED: dilTIAZem HCl 60mg tab ORAL SCH (14:00)
[2017-11-04 16:00] VITALS: BP 121/72
--- NOTE | 2017-11-04 16:51 | Cardiac Electrophysiology PN ---
Assessment/Plan Assessment/Plan 1. Atrial fibrillation with rapid ventricular response. The patient was ruled out for myocardial infarction. Ejection fraction is normal. His urine toxicology screen is positive for benzodiazepine. The patient is already on Lovenox 75 mg subcutaneous b.i.d. for anticoagulation. Will increase Cardizem to to 90 mg every 6 hours as had atrial fib up to 200 overnight 2. Hypertension, on losartan 50 mg daily and Cardizem 90 mg q.6 3. Hypothyroidism, on Synthroid. 4. Hyperlipidemia, on Lipitor. 5. Allergic rhinitis. 6. Leukocytosis, currently on antibiotics. White count decreased from 17,000 to 12,000. DW RN Subjective Subjective Feeling better. No CP or SOB.Remains in atrial fib. Was as tachy as 200 overnight. Objective Last 24 Hour Vital Signs Date Time Temp Pulse Resp B/P (MAP) Pulse Ox O2 Delivery O2 Flow Rate FiO2 11/04/17 13:40 96 116/68 11/04/17 12:00 97.2 97 18 116/68 98 Room Air 97.2 11/04/17 12:00 96 11/04/17 08:38 72 111/68 11/04/17 08:38 111/68 11/04/17 08:00 130 11/04/17 08:00 97.7 72 18 111/68 97 Room Air 97.7 11/04/17 04:00 98.2 92 18 110/68 100 Room Air 98.2 11/04/17 04:00 95 11/04/17 00:00 98.4 94 17 137/90 95 Room Air 98.4 11/04/17 00:00 114 11/03/17 23:53 100 137/93 11/03/17 20:00 126 11/03/17 20:00 98.2 100 16 137/93 92 Room Air 98.2 11/03/17 18:24 97.7 107 20 114/72 98 Room Air 97.7 Intake and Output 11/03/17 11/04/17 19:00 07:00 Intake Total 750 ml Balance 750 ml Intake Oral 750 ml # Voids 4 4 # Bowel Movements 1 Laboratory Tests Test 11/04/17 08:05 White Blood Count 12.7 K/UL (4.8-10.8) H Red Blood Count 5.32 M/UL (4.70-6.10) Hemoglobin 16.8 G/DL (14.2-18.0) Hematocrit 49.5 % (42.0-52.0) Mean Corpuscular Volume 93 FL (80-99) Mean Corpuscular Hemoglobin 31.5 PG (27.0-31.0) H Mean Corpuscular Hemoglobin Concent 33.9 G/DL (32.0-36.0) Red Cell Distribution Width 11.6 % (11.6-14.8) Platelet Count 325 K/UL (150-450) Mean Platelet Volume 9.2 FL (6.5-10.1) Neutrophils (%) (Auto) 80.5 % (45.0-75.0) H Lymphocytes (%) (Auto) 14.1 % (20.0-45.0) L Monocytes (%) (Auto) 5.1 % (1.0-10.0) Eosinophils (%) (Auto) 0.1 % (0.0-3.0) Basophils (%) (Auto) 0.3 % (0.0-2.0) Sodium Level 136 MMOL/L (136-145) Potassium Level 3.7 MMOL/L (3.5-5.1) Chloride Level 105 MMOL/L (98-107) Carbon Dioxide Level 23 MMOL/L (21-32) Anion Gap 8 mmol/L (5-15) Blood Urea Nitrogen 18 mg/dL (7-18) Creatinine 0.9 MG/DL (0.55-1.30) Estimat Glomerular Filtration Rate > 60 mL/min (>60) Glucose Level 172 MG/DL (74-106) H Calcium Level 8.9 MG/DL (8.5-10.1) Total Bilirubin 0.5 MG/DL (0.2-1.0) Aspartate Amino Transf (AST/SGOT) 15 U/L (15-37) Alanine Aminotransferase (ALT/SGPT) 41 U/L (12-78) Alkaline Phosphatase 61 U/L (46-116) Total Protein 6.4 G/DL (6.4-8.2) Albumin 3.0 G/DL (3.4-5.0) L Globulin 3.4 g/dL Albumin/Globulin Ratio 0.9 (1.0-2.7) L Microbiology Date/Time Source Procedure Growth Status 11/01/17 19:35 Blood Blood Culture - Preliminary NO GROWTH AFTER 48 HOURS Resulted 11/01/17 19:10 Blood Blood Culture - Preliminary NO GROWTH AFTER 48 HOURS Resulted Objective HEAD AND NECK: No JVD. LUNGS: Clear. CARDIOVASCULAR: Irregular S1 and S2 with no gallop or murmur. ABDOMEN: Soft. EXTREMITIES: No pitting edema. Juliocesar Boo MD Nov 04, 2017 16:51
[2017-11-04 20:00] VITALS: BP 122/68
[2017-11-04] MEDS ORDERED: Zolpidem 5mg tab ORAL PRN (20:00)
[2017-11-04] MEDS ORDERED: Meloxicam 15 MG TAB ORAL PRN (21:45)
[2017-11-04] MEDS: Atorvastatin 20mg tab ORAL SCH (21:46)
[2017-11-04] MEDS: Tamsulosin 0.4mg cap ORAL SCH (21:46)
[2017-11-04] MEDS: ALPRAZolam 0.25mg tab ORAL PRN (21:52)
[2017-11-05] VITALS: BP 144/72
[2017-11-05 04:00] VITALS: BP 119/78
[2017-11-05] MEDS: dilTIAZem HCl 60mg tab ORAL SCH (04:00)
[2017-11-05 08:00] VITALS: BP 128/85
[2017-11-05] MEDS: Aspirin Baby 81mg ORAL SCH (08:27)
[2017-11-05] MEDS: Diclofenac 75mg tab ORAL SCH ×2 (08:28→18:00)
[2017-11-05] MEDS: Losartan 50mg tab ORAL SCH (08:28)
[2017-11-05] MEDS: dilTIAZem HCl 90mg tab ORAL SCH ×3 (08:29→20:38)
[2017-11-05] MEDS ORDERED: Nitroglycerin Subl 0.4mg tab SL PRN (08:30)
[2017-11-05] MEDS: cefTRIAXone 1 GM in D5W 110 ML IVPB SCH (08:36)
--- NOTE | 2017-11-05 08:37 | Physician Query ---
--------- THIS DOCUMENT IS A PERMANENT PART OF THE MEDICAL RECORD --------- PLEASE COMPLETE DOCUMENT BEFORE SIGNING Dear Dr. Drake Date: 11/05/2017 Technical Services Coordinator/CDS Name: Rob lopez Technical Services Coordinator/CDS Phone No.:[phone] Exercise your independent professional judgment when responding to the query. Questions asked do not imply a particular answer is desired or expected. We greatly appreciate your clarification on this issue. CLINICAL DOCUMENTATION STATES: "? Sepsis" documented in assessment of infectious progress notes CLINICAL FINDINGS SHOW: WBC: Ranging 12.1-17.3, Pulse: 120, RR: 23, Antibiotics : Ceftriaxone Can you please clarify the status of diagnosis "Sepsis": [] The above diagnosis was present and is now resolved [] The above diagnosis is present [] The above diagnosis was ruled out [] The above diagnosis is likely, suspected or probable [] Other [] Unable to determine Likely, suspected and probable diagnoses should be documented as such in the discharge summary. Condition Present on Admission: [] Yes [] No []Clinically Undeterminable Criteria for Sepsis* Sepsis: Presence of 1 or more criteria in this row. Positive cultures (but not required) or WBCs present in otherwise sterile fluid: blood, urine, sputum, CSF , etc.? Prescribed anti-infective therapy: antibiotic, antifungal, and other? Documentation of pneumonia: positive x-ray or clinical presentation? Perforated viscus: perforation of a hollow organ, e.g. bowel? SIRS: Presence of > 2 criteria in this row Temperature: > 100.4 F. or < 96.8 F. Heart rate: > 90 bpm Respiratory rate: > 20/min. WBC count: > 12,000/mm2 < 4,000/mm2 > 10% bands Please also document in your Progress Notes and/or Discharge Summary and indicate if the condition was present on admission. MTDD
[2017-11-05] MEDS: Enoxaparin Sodium 300mg/3ml vial SUBQ SCH ×2 (09:35→20:39)
[2017-11-05] MEDS ORDERED: Digoxin 0.5mg/2ml Inj IVP SCH (10:30)
[2017-11-05 12:00] VITALS: BP 108/62
--- NOTE | 2017-11-05 12:29 | General Progress Note ---
Assessment/Plan Problem List: (1) Atypical chest pain ICD Codes: R07.89 - Other chest pain SNOMED: 040711571 (2) HTN (hypertension) ICD Codes: I10 - Essential (primary) hypertension SNOMED: 28038433 (3) HLD (hyperlipidemia) ICD Codes: E78.5 - Hyperlipidemia, unspecified SNOMED: 98851756 (4) Allergic rhinitis ICD Codes: J30.9 - Allergic rhinitis, unspecified SNOMED: 08718772 (5) Leukocytosis ICD Codes: D72.829 - Elevated white blood cell count, unspecified SNOMED: 344124196, 657685621 (6) Atrial fibrillation with RVR ICD Codes: I48.91 - Unspecified atrial fibrillation SNOMED: 754521902967052 Status: stable, progressing Assessment/Plan - Cardiology consulted, appreciate rec's - ID consulted for elevated WBC, unknown source, appreciate rec's - EKG showing AFcRVR - Trend trops. Trops negative - ACS ruled out. - TTE showing LVEF 55% with no wall motion abnormality - Venous duplex BLE negative - start empiric IV ceftriaxone - CXR negative - f/u blood cx, UA -- negative - trend WBC 17 --> 12 --> 15 --> 12 --> pending for today - if cultures continues to be negative, consider monitoring off abx - s/p IV diltiazem, now on PO diltiazem 30mg q6hr - continue lovenox 75mg BID. consider switching to NOAC upon discharge - check AM lipid panel and A1c - TSH wnl - resume home meds - pain control and supportive care Thank you, Dr. Cheema, for this consultation. DVT Prophylaxis: on lovenox Code Status: Full Hospital Classification Declaration: Based on this initial evaluation, and depending on the patient's clinical course, I anticipate that this patient will require hospitalization for 1-2 days for a.fibb with RVR and close respiratory/ hemodynamic monitoring. Disposition: Once the patient is stable to leave the hospital, I anticipate the patient will likely be discharged to the following environment: home with HH I spent 31 minutes on this patient's case, and 17 minutes were dedicated to counseling and/or care coordination. Discussed with patient/family, nursing staff, SW/CM, primary, ID and cardiology regarding clinical status, treatment course, and disposition planning. Time of note may not reflect time of encounter. Subjective Date patient seen: Nov 05, 2017 Time patient seen: 12:27 Allergies: Coded Allergies: No Known Allergies (Unverified , 11/01/17) Subjective - continues to remain in A.fibb with intermittent RVR - cardizem dose increased - labs pending for today - denies cp, sob Objective Last 24 Hour Vital Signs Date Time Temp Pulse Resp B/P (MAP) Pulse Ox O2 Delivery O2 Flow Rate FiO2 11/05/17 10:45 77 11/05/17 09:32 128/85 11/05/17 08:29 77 128/85 11/05/17 08:28 128/85 11/05/17 08:00 97.7 77 20 128/85 98 Room Air 97.7 11/05/17 07:36 96 11/05/17 04:00 98.2 99 20 119/78 97 Room Air 98.2 11/05/17 04:00 95 11/05/17 04:00 95 119/78 11/05/17 00:00 96 11/05/17 00:00 98.0 80 20 144/72 99 Room Air 98.0 11/04/17 21:46 98 122/68 11/04/17 20:00 98.2 95 20 122/68 97 Room Air 98.2 11/04/17 20:00 98 11/04/17 16:00 97.9 98 18 121/72 98 Room Air 97.9 11/04/17 16:00 102 11/04/17 13:40 96 116/68 Intake and Output 11/04/17 11/05/17 19:00 07:00 Intake Total 750 ml Balance 750 ml Intake Oral 750 ml # Voids 7 2 # Bowel Movements 1 Height (Feet): 5 Height (Inches): 2.00 Weight (Pounds): 168 General Appearance: no apparent distress, alert EENT: PERRL/EOMI, normal ENT inspection Neck: non-tender, normal alignment, supple Cardiovascular: normal peripheral pulses, regularly irregular, tachycardia Respiratory/Chest: chest wall non-tender, lungs clear, normal breath sounds Abdomen: normal bowel sounds, non tender, soft Extremities: normal range of motion, non-tender Neurologic: infection control coordinator II-XII grossly normal, no motor/sensory deficits, alert, oriented x 3 Skin: normal pigmentation, warm/dry Yaz Hardy NP Nov 05, 2017 12:29
[2017-11-05 12:55] LABS: ANION GAP 8 mmol/L (5-15); BLOOD UREA NITROGEN 19 mg/dL (7-18); CARBON DIOXIDE 21 MMOL/L (21-32); CHLORIDE 107 MMOL/L (98-107); CREATININE 0.7 MG/DL (0.55-1.30); POTASSIUM 4.2 MMOL/L (3.5-5.1); SODIUM 136 MMOL/L (136-145)
--- NOTE | 2017-11-05 13:04 | Pulmonology Progress Note ---
Assessment/Plan Problems: (1) Atrial fibrillation with RVR (2) Chest pain (3) ACS (acute coronary syndrome) Assessment/Plan ASSESSMENT: The patient is a 67-year-old male, nonsmoker with history of hypertension, hyperlipidemia, hypothyroidism, presenting with atypical chest pain in AFib with RVR. It is unclear if he has had AFib in the past or if this is new. I agree with the ER's plan to anticoagulate the patient. We will admit him to the hospital, rule out ACS, work up his atrial fibrillation more. He will be seen in consultation with Electrophysiology service. PROBLEM LIST: 1. Atypical chest pain. 2. Atrial fibrillation, admitted with RVR, now rate controlled. 3. Hypertension. 4. Hyperlipidemia. 5. Hypothyroidism. 6. BPH. 7. Chronic neck pain/DDD TREATMENT PLAN: 1. Continue Dilt per EP for rate control, continue A/C for now, F/U cards/EPS recs 2. Optimize pulmonary hygiene/mobilize as tolerated 3. Monitor volumes. 4. Continue CTx per ID, monitor WCt, de-escalate soon 5. Pain control/supportive care 6. DVT prophylaxis: LMWH ---> transition to NOAC on D/C 7. The patient is Full Code. Subjective Allergies: Coded Allergies: No Known Allergies (Unverified , 11/01/17) Subjective AFVSS, in AF with rate upto 200 No CP, no SOB, no F/C, no CP Objective Last 24 Hour Vital Signs Date Time Temp Pulse Resp B/P (MAP) Pulse Ox O2 Delivery O2 Flow Rate FiO2 11/05/17 10:45 77 11/05/17 09:32 128/85 11/05/17 08:29 77 128/85 11/05/17 08:28 128/85 11/05/17 08:00 97.7 77 20 128/85 98 Room Air 97.7 11/05/17 07:36 96 11/05/17 04:00 98.2 99 20 119/78 97 Room Air 98.2 11/05/17 04:00 95 11/05/17 04:00 95 119/78 11/05/17 00:00 96 11/05/17 00:00 98.0 80 20 144/72 99 Room Air 98.0 11/04/17 21:46 98 122/68 11/04/17 20:00 98.2 95 20 122/68 97 Room Air 98.2 11/04/17 20:00 98 11/04/17 16:00 97.9 98 18 121/72 98 Room Air 97.9 11/04/17 16:00 102 11/04/17 13:40 96 116/68 Intake and Output 11/04/17 11/05/17 19:00 07:00 Intake Total 750 ml Balance 750 ml Intake Oral 750 ml # Voids 7 2 # Bowel Movements 1 General Appearance: WD/WN, no acute distress HEENT: normocephalic, atraumatic, anicteric, mucous membranes moist Respiratory/Chest: chest wall non-tender, lungs clear, normal breath sounds, no respiratory distress, no accessory muscle use Cardiovascular: irregularly irregular Abdomen: normal bowel sounds, soft, non tender, no organomegaly, non distended Extremities: no cyanosis, no clubbing, no edema Laboratory Tests 11/05/17 12:25: White Blood Count [Pending], Red Blood Count [Pending], Hemoglobin [Pending], Hematocrit [Pending], Mean Corpuscular Volume [Pending], Mean Corpuscular Hemoglobin [Pending], Mean Corpuscular Hemoglobin Concent [Pending], Red Cell Distribution Width [Pending], Platelet Count [Pending], Mean Platelet Volume [ Pending], Neutrophils (%) (Auto) [Pending], Lymphocytes (%) (Auto) [Pending], Monocytes (%) (Auto) [Pending], Eosinophils (%) (Auto) [Pending], Basophils (%) (Auto) [Pending], Sodium Level [Pending], Potassium Level [Pending], Chloride Level [Pending], Carbon Dioxide Level [Pending], Blood Urea Nitrogen [Pending], Creatinine [Pending], Estimat Glomerular Filtration Rate [Pending], Glucose Level [Pending], Calcium Level [Pending] Current Medications Medications (Trade) Dose Ordered Sig/Adrienne Route PRN Reason Start Time Stop Time Status Last Admin Dose Admin Acetaminophen/ Hydrocodone Bitart ([place] 10/325) 1 tab Q6H PRN ORAL Moderate Pain (Pain Scale 4-6) 11/04/17 16:30 11/11/17 16:29 Acetaminophen/ Hydrocodone Bitart ([place] 5/325) 1 tab Q6H PRN ORAL Mild Pain (Pain Scale 1-3) 11/04/17 16:30 11/11/17 16:29 11/04/17 16:37 Alprazolam (Xanax) 0.25 mg DAILYPRN PRN ORAL For Anxiety 11/04/17 20:00 11/11/17 19:59 11/04/17 21:52 Aspirin (ASA) 81 mg DAILY ORAL 11/05/17 09:00 12/05/17 08:59 11/05/17 08:27 Atorvastatin Calcium (Lipitor) 20 mg BEDTIME ORAL 11/04/17 21:00 12/04/17 20:59 11/04/17 21:46 Ceftriaxone Sodium 1 gm/ Dextrose 110 ml @ 220 mls/hr DAILY IVPB 11/05/17 09:00 11/12/17 08:59 11/05/17 08:36 Diclofenac Sodium (Voltaren) 75 mg BID ORAL 11/05/17 09:00 12/05/17 08:59 11/05/17 08:28 Diltiazem HCl (Cardizem) 90 mg Q6H ORAL 11/05/17 08:00 12/05/17 07:59 11/05/17 08:29 Enoxaparin Sodium (Lovenox) 75 mg Q12H SUBQ 11/04/17 09:00 12/04/17 08:59 11/05/17 09:35 Levothyroxine Sodium (Synthroid) 50 mcg DAILY@0630 ORAL 11/05/17 06:30 12/05/17 06:29 11/05/17 06:08 Lidocaine (Lidoderm 5% PATCH) 1 patch DAILY@2100 TDERMAL 11/05/17 21:00 12/04/17 20:59 Losartan Potassium (Cozaar) 50 mg DAILY ORAL 11/05/17 09:00 12/05/17 08:59 11/05/17 08:28 Meloxicam (Mobic) 15 mg DAILYPRN PRN ORAL Severe Breakthru Pain (>7) 11/04/17 21:45 12/04/17 21:44 11/04/17 21:46 Nitroglycerin (Ntg) 0.4 mg Q5M PRN SL Prn Chest Pain 11/05/17 08:30 12/05/17 08:29 11/05/17 09:32 Pantoprazole (Protonix) 40 mg DAILY ORAL 11/05/17 09:00 12/05/17 08:59 11/05/17 08:27 Tamsulosin HCl (Flomax) 0.4 mg BEDTIME ORAL 11/04/17 21:00 12/04/17 20:59 11/04/17 21:46 Zolpidem Tartrate (Ambien) 5 mg HSPRN PRN ORAL Insomnia 11/04/17 20:00 11/11/17 19:59 Ben Cheema MD Nov 05, 2017 13:04
[2017-11-05 13:08] LABS: BASOPHILS % (AUTO) 0.7 % (0.0-2.0); EOSINOPHILS % (AUTO) 0.1 % (0.0-3.0); HEMATOCRIT 51.3 % (42.0-52.0); HEMOGLOBIN 17.4 G/DL (14.2-18.0); LYMPHOCYTES % (AUTO) 13.9 % (20.0-45.0); MEAN CORPUSCULAR VOLUME 94 FL (80-99); MONOCYTES % (AUTO) 8.6 % (1.0-10.0); NEUTROPHILS % (AUTO) 76.8 % (45.0-75.0); PLATELET COUNT 324 K/UL (150-450); RED BLOOD COUNT 5.45 M/UL (4.70-6.10); RED CELL DISTRIBUTION WIDTH 11.5 % (11.6-14.8); WHITE BLOOD COUNT 14.8 K/UL (4.8-10.8)
[2017-11-05] MEDS: HYDROcodone/Acetamin 10/325 tab ORAL PRN (13:58)
--- NOTE | 2017-11-05 15:07 | Infectious Diseases Prog Note ---
Assessment/Plan Assessment/Plan Full consult dictated: A) 1) chest pain, persistent leukocytosis, ? reactive, ? sepsis, no obvious infection clinically, cultures negative, ua negative, chest x-ray negative 2) afib with rvr 3) pmh noted 4) allergies - negative P) 1) continue rocephin for now 2) will get CT scan 3) consider discontinuation of abx and observation if cultures remain negative and CT negative 4) procalcitonin not available at this facility in d/w lab 5) d/w Dr. Cheema Subjective Constitutional: Denies: fever HEENT: Denies: congestion Respiratory: Denies: shortness of breath Cardiovascular: Reports: chest pain Gastrointestinal/Abdominal: Reports: other - no abdominal pain; Denies: nausea , vomiting, diarrhea Allergies: Coded Allergies: No Known Allergies (Unverified , 11/01/17) Objective Vital Signs Last 24 Hour Vital Signs Date Time Temp Pulse Resp B/P (MAP) Pulse Ox O2 Delivery O2 Flow Rate FiO2 11/05/17 13:59 107 108/62 11/05/17 12:00 97.9 107 20 108/62 98 Room Air 97.9 11/05/17 11:40 106 11/05/17 10:45 77 11/05/17 09:32 128/85 11/05/17 08:29 77 128/85 11/05/17 08:28 128/85 11/05/17 08:00 97.7 77 20 128/85 98 Room Air 97.7 11/05/17 07:36 96 11/05/17 04:00 98.2 99 20 119/78 97 Room Air 98.2 11/05/17 04:00 95 11/05/17 04:00 95 119/78 11/05/17 00:00 96 11/05/17 00:00 98.0 80 20 144/72 99 Room Air 98.0 11/04/17 21:46 98 122/68 11/04/17 20:00 98.2 95 20 122/68 97 Room Air 98.2 11/04/17 20:00 98 11/04/17 16:00 97.9 98 18 121/72 98 Room Air 97.9 11/04/17 16:00 102 Height (Feet): 5 Height (Inches): 2.00 Weight (Pounds): 168 General Appearance: no acute distress HEENT: normocephalic, atraumatic, anicteric, mucous membranes moist Respiratory/Chest: lungs clear, normal breath sounds, no respiratory distress, no accessory muscle use Cardiovascular: normal rate, regular rhythm, no gallop/murmur Abdomen: normal bowel sounds, soft, non tender, no organomegaly, non distended Genitourinary: other - no youssef Extremities: no cyanosis Skin: other - no cellulitis arm Laboratory Tests Test 11/05/17 12:25 White Blood Count 14.8 K/UL (4.8-10.8) H Red Blood Count 5.45 M/UL (4.70-6.10) Hemoglobin 17.4 G/DL (14.2-18.0) Hematocrit 51.3 % (42.0-52.0) Mean Corpuscular Volume 94 FL (80-99) Mean Corpuscular Hemoglobin 31.9 PG (27.0-31.0) H Mean Corpuscular Hemoglobin Concent 33.9 G/DL (32.0-36.0) Red Cell Distribution Width 11.5 % (11.6-14.8) L Platelet Count 324 K/UL (150-450) Mean Platelet Volume 8.4 FL (6.5-10.1) Neutrophils (%) (Auto) 76.8 % (45.0-75.0) H Lymphocytes (%) (Auto) 13.9 % (20.0-45.0) L Monocytes (%) (Auto) 8.6 % (1.0-10.0) Eosinophils (%) (Auto) 0.1 % (0.0-3.0) Basophils (%) (Auto) 0.7 % (0.0-2.0) Sodium Level 136 MMOL/L (136-145) Potassium Level 4.2 MMOL/L (3.5-5.1) Chloride Level 107 MMOL/L (98-107) Carbon Dioxide Level 21 MMOL/L (21-32) Anion Gap 8 mmol/L (5-15) Blood Urea Nitrogen 19 mg/dL (7-18) H Creatinine 0.7 MG/DL (0.55-1.30) Estimat Glomerular Filtration Rate > 60 mL/min (>60) Glucose Level 107 MG/DL (74-106) H Calcium Level 9.0 MG/DL (8.5-10.1) Current Medications Medications (Trade) Dose Ordered Sig/Adrienne Route PRN Reason Start Time Stop Time Status Last Admin Dose Admin Acetaminophen/ Hydrocodone Bitart ([place] 10/325) 1 tab Q6H PRN ORAL Moderate Pain (Pain Scale 4-6) 11/04/17 16:30 11/11/17 16:29 11/05/17 13:58 Acetaminophen/ Hydrocodone Bitart ([place] 5/325) 1 tab Q6H PRN ORAL Mild Pain (Pain Scale 1-3) 11/04/17 16:30 11/11/17 16:29 11/04/17 16:37 Alprazolam (Xanax) 0.25 mg DAILYPRN PRN ORAL For Anxiety 11/04/17 20:00 11/11/17 19:59 11/04/17 21:52 Aspirin (ASA) 81 mg DAILY ORAL 11/05/17 09:00 12/05/17 08:59 11/05/17 08:27 Atorvastatin Calcium (Lipitor) 20 mg BEDTIME ORAL 11/04/17 21:00 12/04/17 20:59 11/04/17 21:46 Ceftriaxone Sodium 1 gm/ Dextrose 110 ml @ 220 mls/hr DAILY IVPB 11/05/17 09:00 11/12/17 08:59 11/05/17 08:36 Diclofenac Sodium (Voltaren) 75 mg BID ORAL 11/05/17 09:00 12/05/17 08:59 11/05/17 08:28 Diltiazem HCl (Cardizem) 90 mg Q6H ORAL 11/05/17 08:00 12/05/17 07:59 11/05/17 13:59 Enoxaparin Sodium (Lovenox) 75 mg Q12H SUBQ 11/04/17 09:00 12/04/17 08:59 11/05/17 09:35 Levothyroxine Sodium (Synthroid) 50 mcg DAILY@0630 ORAL 11/05/17 06:30 12/05/17 06:29 11/05/17 06:08 Lidocaine (Lidoderm 5% PATCH) 1 patch DAILY@2100 TDERMAL 11/05/17 21:00 12/04/17 20:59 Losartan Potassium (Cozaar) 50 mg DAILY ORAL 11/05/17 09:00 12/05/17 08:59 11/05/17 08:28 Meloxicam (Mobic) 15 mg DAILYPRN PRN ORAL Severe Breakthru Pain (>7) 11/04/17 21:45 12/04/17 21:44 11/04/17 21:46 Nitroglycerin (Ntg) 0.4 mg Q5M PRN SL Prn Chest Pain 11/05/17 08:30 12/05/17 08:29 11/05/17 09:32 Pantoprazole (Protonix) 40 mg DAILY ORAL 11/05/17 09:00 12/05/17 08:59 11/05/17 08:27 Tamsulosin HCl (Flomax) 0.4 mg BEDTIME ORAL 11/04/17 21:00 12/04/17 20:59 11/04/17 21:46 Zolpidem Tartrate (Ambien) 5 mg HSPRN PRN ORAL Insomnia 11/04/17 20:00 11/11/17 19:59 Judith Drake MD Nov 05, 2017 15:07
[2017-11-05 16:00] VITALS: BP 138/73
--- NOTE | 2017-11-05 16:05 | Cardiac Electrophysiology PN ---
Assessment/Plan Assessment/Plan 1. Atrial fibrillation with rapid ventricular response. The patient was ruled out for myocardial infarction. Ejection fraction is normal. His urine toxicology screen is positive for benzodiazepine. The patient is already on Lovenox 75 mg subcutaneous b.i.d. for anticoagulation. Inbcreased Cardizem to to 90 mg every 6 hours and Add Digoxin 0.25 daily 2. Hypertension, on losartan 50 mg daily and Cardizem 90 mg q.6 3. Hypothyroidism, on Synthroid. 4. Hyperlipidemia, on Lipitor. 5. Allergic rhinitis. 6. Leukocytosis, currently on antibiotics. White count decreased from 17,000 to 12,000. DW RN Subjective Subjective Feeling better. No CP or SOB.Remains in atrial fib was tachy and got iv Digoxin Objective Last 24 Hour Vital Signs Date Time Temp Pulse Resp B/P (MAP) Pulse Ox O2 Delivery O2 Flow Rate FiO2 11/05/17 13:59 107 108/62 11/05/17 12:00 97.9 107 20 108/62 98 Room Air 97.9 11/05/17 11:40 106 11/05/17 10:45 77 11/05/17 09:32 128/85 11/05/17 08:29 77 128/85 11/05/17 08:28 128/85 11/05/17 08:00 97.7 77 20 128/85 98 Room Air 97.7 11/05/17 07:36 96 11/05/17 04:00 98.2 99 20 119/78 97 Room Air 98.2 11/05/17 04:00 95 11/05/17 04:00 95 119/78 11/05/17 00:00 96 11/05/17 00:00 98.0 80 20 144/72 99 Room Air 98.0 11/04/17 21:46 98 122/68 11/04/17 20:00 98.2 95 20 122/68 97 Room Air 98.2 11/04/17 20:00 98 Intake and Output 11/04/17 11/05/17 19:00 07:00 Intake Total 750 ml Balance 750 ml Intake Oral 750 ml # Voids 7 2 # Bowel Movements 1 Laboratory Tests Test 11/05/17 12:25 White Blood Count 14.8 K/UL (4.8-10.8) H Red Blood Count 5.45 M/UL (4.70-6.10) Hemoglobin 17.4 G/DL (14.2-18.0) Hematocrit 51.3 % (42.0-52.0) Mean Corpuscular Volume 94 FL (80-99) Mean Corpuscular Hemoglobin 31.9 PG (27.0-31.0) H Mean Corpuscular Hemoglobin Concent 33.9 G/DL (32.0-36.0) Red Cell Distribution Width 11.5 % (11.6-14.8) L Platelet Count 324 K/UL (150-450) Mean Platelet Volume 8.4 FL (6.5-10.1) Neutrophils (%) (Auto) 76.8 % (45.0-75.0) H Lymphocytes (%) (Auto) 13.9 % (20.0-45.0) L Monocytes (%) (Auto) 8.6 % (1.0-10.0) Eosinophils (%) (Auto) 0.1 % (0.0-3.0) Basophils (%) (Auto) 0.7 % (0.0-2.0) Sodium Level 136 MMOL/L (136-145) Potassium Level 4.2 MMOL/L (3.5-5.1) Chloride Level 107 MMOL/L (98-107) Carbon Dioxide Level 21 MMOL/L (21-32) Anion Gap 8 mmol/L (5-15) Blood Urea Nitrogen 19 mg/dL (7-18) H Creatinine 0.7 MG/DL (0.55-1.30) Estimat Glomerular Filtration Rate > 60 mL/min (>60) Glucose Level 107 MG/DL (74-106) H Calcium Level 9.0 MG/DL (8.5-10.1) Objective HEAD AND NECK: No JVD. LUNGS: Clear. CARDIOVASCULAR: Irregular S1 and S2 with no gallop or murmur. ABDOMEN: Soft. EXTREMITIES: No pitting edema. Juliocesar Boo MD Nov 05, 2017 16:05
--- NOTE | 2017-11-05 19:30 | Consultation ---
DATE OF CONSULTATION: 11/05/2017 INFECTIOUS DISEASE CONSULTATION CONSULTING PHYSICIAN: Judith Drake M.D. ATTENDING PHYSICIAN: Ben Cheema M.D. REFERRING PHYSICIAN: Ben Cheema M.D. REASON FOR CONSULTATION: Leukocytosis, rule out sepsis or infection. CHIEF COMPLAINT: The patient's chief complaint coming into the hospital is chest pain, acute coronary syndrome. HISTORY OF PRESENT ILLNESS: This is a 67-year-old male, who comes to the [facility] with chest pain. The patient was seen by Cardiology and troponins were negative. He also had atrial fibrillation with rapid ventricular response. The patient has been placed on anticoagulation. The patient now was noted to have white count of 17.3, it improved, but it was up to 15.5, now 14.8. It did go down as low as 12.1, but has increased again. Infectious Disease consultation is requested to rule out any infection. Blood cultures are negative to date x4 sets. Chest x-ray is negative. UA was unremarkable. An echocardiogram was done which showed per the reading, anterior echo-free space, may be due to pericardial fat or effusion. The patient has recurrent chest pain. Infectious Disease consultation was requested for further workup. He is currently on Rocephin 1 g IV q.24 h. Case was discussed with Dr. Cheema, attending physician. REVIEW OF SYSTEMS: CONSTITUTIONAL: He has generalized fatigue. No focal weakness. He has no fever, chills, night sweats, or weight loss. HEAD AND NECK: No thrush, dysphagia, or sinus tenderness. CARDIAC: He came in with chest pain. It is recurrent. GASTROINTESTINAL: No nausea, vomiting, or diarrhea. GENITOURINARY: No dysuria or frequency. No CVA tenderness. PULMONARY: No congestion, shortness of breath, hemoptysis, or secretions. SKIN: No rash or itching. EXTREMITIES: No extremity pain. NEUROLOGIC: No seizures. He did have, in discussion with nursing staff, in his arms some possible infiltrate of IV, however, there is no evidence of pain in the arms at this time. PAST MEDICAL HISTORY: Includes the history of following. The patient has past medical history as discussed. He came in with atrial fibrillation with rapid ventricular response. He came in with atypical chest pain. He has history of hypertension, hyperlipidemia, allergic rhinitis. He has no history of diabetes mentioned. He has history of BPH. ALLERGIES: No known drug allergies. SOCIAL HISTORY: Negative for smoking, alcohol, or drug abuse. FAMILY HISTORY: Noncontributory. Negative for exposure to tuberculosis or cancer. MEDICATIONS: Upon reviewing the MAR, he is on following medications. He is on Rocephin, aspirin, Protonix, Cozaar, Voltaren, abx, Cardizem, Synthroid, Mobic. He is on Lipitor, Flomax, Xanax, Ambien, Pr[place], hydrocodone, enoxaparin or Lovenox. Outside medications noted and reconciliated. PHYSICAL EXAMINATION: VITAL SIGNS: Temperature 97.9, pulse rate 107, respiratory rate 20, blood pressure 108/60, saturation 98%. GENERAL: Alert, responsive, in no acute distress. HEAD AND NECK: Oral exam, no thrush. Eye exam, no icterus. No JVD. Normocephalic. No facial droop. No neck stiffness. Neck is supple. HEART: Regular. No gallop or murmur. No friction rub. He states his chest pain is in the center area when he has it, but I could not appreciate friction rub or murmur at this time. It is regular. ABDOMEN: Soft. Positive bowel sounds. Nontender. LUNGS: Fairly clear bilaterally. No rhonchi or rales. SKIN: No rash. MUSCULOSKELETAL: No effusion. Legs are without cellulitis. Again, no evidence of septic arthritis. PERIPHERAL VASCULAR: No cyanosis or gangrene. The arms are without cellulitis. NEUROLOGIC: Intact. LINE SITES: Without phlebitis. GENITOURINARY: No CVA tenderness. LABORATORY AND DIAGNOSTIC DATA: Laboratory data as follows. White count 14.8, hemoglobin 17.4, platelet count is 324,000. White count on admission was 17.3, but it went down but now is elevated again. Today's white count 14.8 and platelet count 324,000. LFTs were noted. Troponin is negative. TSH is normal. I will order a sedimentation rate and CRP. Creatinine 0.9. Imaging studies, chest x-ray is negative for pneumonia. Blood cultures, negative to date. UA is negative. Echocardiogram again as discussed earlier shows possible pericardial fat or effusion upon reviewing the report. There is no mention of vegetations on the report. ASSESSMENT AND PLAN: 1. The patient has persistent leukocytosis, however, he has no fevers. He does have an elevated heart rate, but that could be secondary to the atrial fibrillation with rapid ventricular response. The patient has been on Rocephin in general for persistent leukocytosis. He does have chest pain. At this time, the patient will be continued on Rocephin. We will check a CT scan of the chest, abdomen, and pelvis. Also in the differential is possibly pericarditis, which could also explain the chest pain and leukocytosis, but must rule out other process and we will get a CT scan with contrast of chest and at the same time, we will get of abdomen and pelvis to make sure there is no other etiology for leukocytosis. If the patient's leukocytosis improves and the CT scan is unrevealing for infection, I will consider stopping the antibiotics since at this point, I do not see indication for them. We will also get inflammatory markers, sedimentation rate, and CRP. TSH was unremarkable and was within normal range. Procalcitonin is not available at this hospital. Case discussed with Dr. Cheema. 2. The patient has atrial fibrillation with rapid ventricular response. 3. The patient has hypothyroidism. Continue thyroid supplementation. TSH level was normal. 4. Hypertension. 5. Hyperlipidemia. 6. No history of diabetes. 7. BPH. 8. Blood pressure and lipid treatment per primary consultants. 9. Allergic rhinitis. 10. Past medical history noted. 11. No known allergies. 12. Social history negative. 13. Family history noncontributory. 14. MAR was noted. 15. Case discussed with RN. 16. Case discussed with Dr. Cheema. 17. Orders were entered and noted. 18. Continue treatment per primary consultants. Judith Drake M.D. DR: Merced JOB#: [id number] CC: ODILON
[2017-11-05 20:00] VITALS: BP 111/57
[2017-11-05] MEDS: Tamsulosin 0.4mg cap ORAL SCH (20:38)
[2017-11-05] MEDS: Atorvastatin 20mg tab ORAL SCH (20:38)
[2017-11-05] MEDS: ALPRAZolam 0.25mg tab ORAL PRN (22:48)
[2017-11-06] VITALS: BP 116/69
[2017-11-06] MEDS: dilTIAZem HCl 90mg tab ORAL SCH ×4 (01:54→20:22)
[2017-11-06 04:00] VITALS: BP 107/53
[2017-11-06 05:51] LABS: BASOPHILS % (AUTO) 0.2 % (0.0-2.0); EOSINOPHILS % (AUTO) 0.1 % (0.0-3.0); HEMATOCRIT 44.6 % (42.0-52.0); HEMOGLOBIN 15.7 G/DL (14.2-18.0); LYMPHOCYTES % (AUTO) 14.9 % (20.0-45.0); MEAN CORPUSCULAR VOLUME 93 FL (80-99); MONOCYTES % (AUTO) 5.5 % (1.0-10.0); NEUTROPHILS % (AUTO) 79.2 % (45.0-75.0); PLATELET COUNT 295 K/UL (150-450); RED CELL DISTRIBUTION WIDTH 11.2 % (11.6-14.8); WHITE BLOOD COUNT 12.7 K/UL (4.8-10.8)
[2017-11-06 05:55] LABS: ANION GAP 6 mmol/L (5-15); BLOOD UREA NITROGEN 17 mg/dL (7-18); CALCIUM 8.7 MG/DL (8.5-10.1); CARBON DIOXIDE 26 MMOL/L (21-32); CHLORIDE 108 MMOL/L (98-107); CREATININE 0.7 MG/DL (0.55-1.30); SODIUM 140 MMOL/L (136-145)
[2017-11-06 08:00] VITALS: BP 103/61
[2017-11-06] MEDS: cefTRIAXone 1 GM in D5W 110 ML IVPB SCH (09:00)
[2017-11-06] MEDS: Losartan 50mg tab ORAL SCH (09:00)
[2017-11-06] MEDS: Aspirin Baby 81mg ORAL SCH (09:00)
[2017-11-06] MEDS: Enoxaparin Sodium 300mg/3ml vial SUBQ SCH ×2 (09:00→20:19)
[2017-11-06] MEDS: Diclofenac 75mg tab ORAL SCH ×2 (09:00→18:00)
--- NOTE | 2017-11-06 10:26 | Pulmonology Progress Note ---
Assessment/Plan Problems: (1) Atrial fibrillation with RVR (2) Chest pain (3) ACS (acute coronary syndrome) Assessment/Plan ASSESSMENT: The patient is a 67-year-old male, nonsmoker with history of hypertension, hyperlipidemia, hypothyroidism, presenting with atypical chest pain in AFib with RVR. It is unclear if he has had AFib in the past or if this is new. I agree with the ER's plan to anticoagulate the patient. We will admit him to the hospital, rule out ACS, work up his atrial fibrillation more. He will be seen in consultation with Electrophysiology service. PROBLEM LIST: 1. Atypical chest pain. 2. Atrial fibrillation, admitted with RVR, now rate controlled. 3. Hypertension. 4. Hyperlipidemia. 5. Hypothyroidism. 6. BPH. 7. Chronic neck pain/DDD TREATMENT PLAN: 1. Continue Dilt per EP for rate control, continue A/C for now, F/U cards/EPS recs 2. Optimize pulmonary hygiene/mobilize as tolerated 3. Monitor volumes. 4. Continue CTx per ID, monitor WCt, F/U CT CAP 5. Pain control/supportive care 6. DVT prophylaxis: LMWH ---> transition to NOAC on D/C 7. The patient is Full Code. Subjective Allergies: Coded Allergies: No Known Allergies (Unverified , 11/01/17) Subjective AFVSS, rate controlled, WCt better, CT pending No CP, no SOB, no F/C, no CP Objective Last 24 Hour Vital Signs Date Time Temp Pulse Resp B/P (MAP) Pulse Ox O2 Delivery O2 Flow Rate FiO2 11/06/17 09:00 97.3 11/06/17 09:00 103/61 11/06/17 08:59 89 11/06/17 08:58 89 103/61 11/06/17 04:00 97.3 94 17 107/53 95 Room Air 97.3 11/06/17 04:00 93 11/06/17 01:54 93 116/69 11/06/17 00:00 97.9 74 20 116/69 95 Room Air 97.9 11/06/17 00:00 93 11/05/17 20:38 98 111/57 11/05/17 20:00 98.4 100 18 111/57 98 Room Air 98.4 11/05/17 20:00 98 11/05/17 16:00 97.0 97 20 138/73 97 Room Air 97.0 11/05/17 15:46 102 11/05/17 13:59 107 108/62 11/05/17 12:00 97.9 107 20 108/62 98 Room Air 97.9 11/05/17 11:40 106 11/05/17 10:45 77 Intake and Output 11/05/17 11/06/17 19:00 07:00 Intake Total 500 ml Balance 500 ml Intake Oral 500 ml General Appearance: WD/WN, no acute distress HEENT: normocephalic, atraumatic, anicteric, mucous membranes moist Respiratory/Chest: chest wall non-tender, lungs clear, normal breath sounds, no respiratory distress, no accessory muscle use Cardiovascular: normal peripheral pulses, normal rate, irregularly irregular Abdomen: normal bowel sounds, soft, non tender, no organomegaly, non distended , no mass Extremities: no cyanosis, no clubbing, no edema Laboratory Tests 11/05/17 12:25: White Blood Count 14.8H, Red Blood Count 5.45, Hemoglobin 17.4, Hematocrit 51.3 , Mean Corpuscular Volume 94, Mean Corpuscular Hemoglobin 31.9H, Mean Corpuscular Hemoglobin Concent 33.9, Red Cell Distribution Width 11.5L, Platelet Count 324, Mean Platelet Volume 8.4, Neutrophils (%) (Auto) 76.8H, Lymphocytes (%) (Auto) 13.9L, Monocytes (%) (Auto) 8.6, Eosinophils (%) (Auto) 0.1, Basophils (%) (Auto) 0.7, Sodium Level 136, Potassium Level 4.2, Chloride Level 107, Carbon Dioxide Level 21, Anion Gap 8, Blood Urea Nitrogen 19H, Creatinine 0.7, Estimat Glomerular Filtration Rate > 60, Glucose Level 107H, Calcium Level 9.0 11/05/17 16:45: Erythrocyte Sedimentation Rate 2, C-Reactive Protein, Quantitative < 0.4 11/06/17 04:45: White Blood Count 12.7H, Red Blood Count 4.80, Hemoglobin 15.7, Hematocrit 44.6 , Mean Corpuscular Volume 93, Mean Corpuscular Hemoglobin 32.7H, Mean Corpuscular Hemoglobin Concent 35.2, Red Cell Distribution Width 11.2L, Platelet Count 295, Mean Platelet Volume 8.9, Neutrophils (%) (Auto) 79.2H, Lymphocytes (%) (Auto) 14.9L, Monocytes (%) (Auto) 5.5, Eosinophils (%) (Auto) 0.1, Basophils (%) (Auto) 0.2, Sodium Level 140, Potassium Level 4.0, Chloride Level 108H, Carbon Dioxide Level 26, Anion Gap 6, Blood Urea Nitrogen 17, Creatinine 0.7, Estimat Glomerular Filtration Rate > 60, Glucose Level 139H, Calcium Level 8.7, Digoxin Level < 0.2L Current Medications Medications (Trade) Dose Ordered Sig/Adrienne Route PRN Reason Start Time Stop Time Status Last Admin Dose Admin Acetaminophen/ Hydrocodone Bitart ([place] 10/325) 1 tab Q6H PRN ORAL Moderate Pain (Pain Scale 4-6) 11/04/17 16:30 11/11/17 16:29 11/05/17 13:58 Acetaminophen/ Hydrocodone Bitart ([place] 5/325) 1 tab Q6H PRN ORAL Mild Pain (Pain Scale 1-3) 11/04/17 16:30 11/11/17 16:29 11/04/17 16:37 Alprazolam (Xanax) 0.25 mg DAILYPRN PRN ORAL For Anxiety 11/04/17 20:00 11/11/17 19:59 11/05/17 22:48 Aspirin (ASA) 81 mg DAILY ORAL 11/05/17 09:00 12/05/17 08:59 11/05/17 08:27 Atorvastatin Calcium (Lipitor) 20 mg BEDTIME ORAL 11/04/17 21:00 12/04/17 20:59 11/05/17 20:38 Ceftriaxone Sodium 1 gm/ Dextrose 110 ml @ 220 mls/hr DAILY IVPB 11/05/17 09:00 11/12/17 08:59 11/06/17 09:00 Diclofenac Sodium (Voltaren) 75 mg BID ORAL 11/05/17 09:00 12/05/17 08:59 11/05/17 08:28 Digoxin (Lanoxin) 0.25 mg DAILY ORAL 11/06/17 09:00 12/06/17 08:59 11/06/17 08:59 Diltiazem HCl (Cardizem) 90 mg Q6H ORAL 11/05/17 08:00 12/05/17 07:59 11/06/17 08:58 Enoxaparin Sodium (Lovenox) 75 mg Q12H SUBQ 11/04/17 09:00 12/04/17 08:59 11/05/17 20:39 Levothyroxine Sodium (Synthroid) 50 mcg DAILY@0630 ORAL 11/05/17 06:30 12/05/17 06:29 11/06/17 06:00 Lidocaine (Lidoderm 5% PATCH) 1 patch DAILY@2100 TDERMAL 11/05/17 21:00 12/04/17 20:59 11/05/17 20:50 Losartan Potassium (Cozaar) 50 mg DAILY ORAL 11/05/17 09:00 12/05/17 08:59 11/05/17 08:28 Meloxicam (Mobic) 15 mg DAILYPRN PRN ORAL Severe Breakthru Pain (>7) 11/04/17 21:45 12/04/17 21:44 11/04/17 21:46 Nitroglycerin (Ntg) 0.4 mg Q5M PRN SL Prn Chest Pain 11/05/17 08:30 12/05/17 08:29 11/05/17 09:32 Pantoprazole (Protonix) 40 mg DAILY ORAL 11/05/17 09:00 12/05/17 08:59 11/06/17 08:58 Tamsulosin HCl (Flomax) 0.4 mg BEDTIME ORAL 11/04/17 21:00 12/04/17 20:59 11/05/17 20:38 Zolpidem Tartrate (Ambien) 5 mg HSPRN PRN ORAL Insomnia 11/04/17 20:00 11/11/17 19:59 Ben Cheema MD Nov 06, 2017 10:26
[2017-11-06 12:00] VITALS: BP 129/84
--- NOTE | 2017-11-06 13:53 | General Progress Note ---
Assessment/Plan Problem List: (1) Atypical chest pain ICD Codes: R07.89 - Other chest pain SNOMED: 284682285 (2) HTN (hypertension) ICD Codes: I10 - Essential (primary) hypertension SNOMED: 34263124 (3) HLD (hyperlipidemia) ICD Codes: E78.5 - Hyperlipidemia, unspecified SNOMED: 03229503 (4) Allergic rhinitis ICD Codes: J30.9 - Allergic rhinitis, unspecified SNOMED: 47398419 (5) Leukocytosis ICD Codes: D72.829 - Elevated white blood cell count, unspecified SNOMED: 804901577, 690053392 (6) Atrial fibrillation with RVR ICD Codes: I48.91 - Unspecified atrial fibrillation SNOMED: 183055852186905 Status: stable, progressing Assessment/Plan - Cardiology consulted, appreciate rec's - ID consulted for elevated WBC, unknown source, appreciate rec's - EKG showing AFcRVR - Trend trops. Trops negative - ACS ruled out. - TTE showing LVEF 55% with no wall motion abnormality - Venous duplex BLE negative - start empiric IV ceftriaxone - CXR negative - f/u blood cx, UA -- negative - trend WBC 17 --> 12 --> 15 --> 12 --> 14 --> 12 - F/u CT a/p - if cultures continues to be negative, consider monitoring off abx - s/p IV diltiazem, now on cardizem 90mg q6hr and digoxin 0.25mg qd - continue lovenox 75mg BID. consider switching to NOAC upon discharge - check AM lipid panel and A1c - TSH wnl - resume home meds - pain control and supportive care If CT a/p negative and rate controlled, consider DC planning to home. Thank you, Dr. Cheema, for this consultation. DVT Prophylaxis: on lovenox Code Status: Full Hospital Classification Declaration: Based on this initial evaluation, and depending on the patient's clinical course, I anticipate that this patient will require hospitalization for 1-2 days for a.fibb with RVR and close respiratory/ hemodynamic monitoring. Disposition: Once the patient is stable to leave the hospital, I anticipate the patient will likely be discharged to the following environment: home with HH I spent 31 minutes on this patient's case, and 17 minutes were dedicated to counseling and/or care coordination. Discussed with patient/family, nursing staff, SW/CM, primary, ID and cardiology regarding clinical status, treatment course, and disposition planning. Time of note may not reflect time of encounter. Subjective Date patient seen: Nov 06, 2017 Time patient seen: 13:50 Allergies: Coded Allergies: No Known Allergies (Unverified , 11/01/17) Subjective - started on digoxin - continues to remain in A. fibb but no RVR today - WBC continues to be elevated - CT a/p pending - denies cp, sob Objective Last 24 Hour Vital Signs Date Time Temp Pulse Resp B/P (MAP) Pulse Ox O2 Delivery O2 Flow Rate FiO2 11/06/17 09:00 97.3 11/06/17 09:00 103/61 11/06/17 08:59 89 11/06/17 08:58 89 103/61 11/06/17 08:00 80 11/06/17 08:00 97.7 89 18 103/61 95 Room Air 97.7 11/06/17 04:00 97.3 94 17 107/53 95 Room Air 97.3 11/06/17 04:00 93 11/06/17 01:54 93 116/69 11/06/17 00:00 97.9 74 20 116/69 95 Room Air 97.9 11/06/17 00:00 93 11/05/17 20:38 98 111/57 11/05/17 20:00 98.4 100 18 111/57 98 Room Air 98.4 11/05/17 20:00 98 11/05/17 16:00 97.0 97 20 138/73 97 Room Air 97.0 11/05/17 15:46 102 11/05/17 13:59 107 108/62 Intake and Output 11/05/17 11/06/17 19:00 07:00 Intake Total 500 ml Balance 500 ml Intake Oral 500 ml Laboratory Tests 11/05/17 16:45: Erythrocyte Sedimentation Rate 2, C-Reactive Protein, Quantitative < 0.4 11/06/17 04:45: White Blood Count 12.7H, Red Blood Count 4.80, Hemoglobin 15.7, Hematocrit 44.6 , Mean Corpuscular Volume 93, Mean Corpuscular Hemoglobin 32.7H, Mean Corpuscular Hemoglobin Concent 35.2, Red Cell Distribution Width 11.2L, Platelet Count 295, Mean Platelet Volume 8.9, Neutrophils (%) (Auto) 79.2H, Lymphocytes (%) (Auto) 14.9L, Monocytes (%) (Auto) 5.5, Eosinophils (%) (Auto) 0.1, Basophils (%) (Auto) 0.2, Sodium Level 140, Potassium Level 4.0, Chloride Level 108H, Carbon Dioxide Level 26, Anion Gap 6, Blood Urea Nitrogen 17, Creatinine 0.7, Estimat Glomerular Filtration Rate > 60, Glucose Level 139H, Calcium Level 8.7, Digoxin Level < 0.2L Height (Feet): 5 Height (Inches): 2.00 Weight (Pounds): 168 General Appearance: no apparent distress, alert EENT: PERRL/EOMI, normal ENT inspection Neck: non-tender, normal alignment, supple Cardiovascular: normal peripheral pulses, normal rate, regular rhythm Respiratory/Chest: chest wall non-tender, lungs clear, normal breath sounds Abdomen: normal bowel sounds, non tender, soft Extremities: normal range of motion, non-tender 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
--- NOTE | 2017-11-06 13:53 | Diagnostic Imaging Report ---
INDICATION: Chest pain and abdominal pain TECHNIQUE: Patient ingested oral contrast. IV administration nonionic contrast. Multiphasic spiral acquisitions obtained through the chest, abdomen, and pelvis Multiplanar reconstructions were generated. Total dose length product 1791.98 mGycm. CTDIvol(s) 19,15.78 mGy. Radiation dose was minimized using automated exposure control COMPARISON: none FINDINGS Chest: A single tiny bulla is seen at the right lung base. No infiltrates, effusions, congestion, nodules, or masses are demonstrated. The heart size is normal. No pericardial effusion. No mediastinal or hilar mass or adenopathy. A few calcifications are seen in the right pulmonary hilum. The thyroid is unremarkable. No axillary or chest wall mass or adenopathy. The bones are unremarkable. The esophagus is unremarkable. Abdomen pelvis: The appendix is normal. There is colonic diverticulosis. No evidence of diverticulitis. There are small fat-containing bilateral inguinal hernias. There is mild diastasis of the rectus abdominis tendon. The stomach, duodenum are unremarkable. No free or loculated intraperitoneal air or fluid. No small bowel distention or small bowel wall thickening. Contrast is seen throughout most of the small bowel, reaching as far as the proximal terminal ileum. The liver, gallbladder, bile ducts, pancreas, spleen, adrenals, kidneys are all unremarkable. There is a nonspecific bilateral perinephric fat stranding. No renal or ureteral calculi, hydronephrosis, or hydroureter. The bladder is nondistended, unremarkable. No pelvic mass or adenopathy. No retroperitoneal or mesenteric mass or adenopathy. The bones are unremarkable IMPRESSION: No acute thoracic process Single small bulla at the right lung base, significance uncertain No acute abdominal or pelvic process Colonic diverticulosis. No evidence of diverticulitis Other findings as noted, including nonspecific bilateral perinephric fat stranding, small fat-containing bilateral inguinal hernias, rectus abdominis tendon diastasis, old granulomas calcification in the right pulmonary hilum The CT scanner at [facility] is accredited by the [employer] and the scans are performed using protocols designed to limit radiation exposure to as low as reasonably achievable to attain images of sufficient resolution adequate for diagnostic evaluation.
[2017-11-06 16:00] VITALS: BP 107/73
--- NOTE | 2017-11-06 16:22 | Cardiac Electrophysiology PN ---
Assessment/Plan Assessment/Plan 1. Atrial fibrillation with rapid ventricular response. The patient was ruled out for myocardial infarction. Ejection fraction is normal. His urine toxicology screen is positive for benzodiazepine. The patient is already on Lovenox 75 mg subcutaneous b.i.d. but refused this am. On Cardizem 90 mg every 6 hours and Digoxin 0.25 daily 2. Hypertension, DC losartan and continue Cardizem 90 mg q.6 3. Hypothyroidism, on Synthroid. 4. Hyperlipidemia, on Lipitor. 5. Allergic rhinitis. 6. Leukocytosis, currently on antibiotics. CT abdomen and Pelvis pending ABDIRIZAK RN Subjective Subjective Feeling better. No CP or SOB.Remains in atrial fib but rate stable after iv Digoxin. Had CT of Chest abdomen and Pelvis Objective Last 24 Hour Vital Signs Date Time Temp Pulse Resp B/P (MAP) Pulse Ox O2 Delivery O2 Flow Rate FiO2 11/06/17 14:35 102 129/84 11/06/17 12:00 97.4 102 18 129/84 95 Room Air 97.4 11/06/17 09:00 97.3 11/06/17 09:00 103/61 11/06/17 08:59 89 11/06/17 08:58 89 103/61 11/06/17 08:00 80 11/06/17 08:00 97.7 89 18 103/61 95 Room Air 97.7 11/06/17 04:00 97.3 94 17 107/53 95 Room Air 97.3 11/06/17 04:00 93 11/06/17 01:54 93 116/69 11/06/17 00:00 97.9 74 20 116/69 95 Room Air 97.9 11/06/17 00:00 93 11/05/17 20:38 98 111/57 11/05/17 20:00 98.4 100 18 111/57 98 Room Air 98.4 11/05/17 20:00 98 Intake and Output 11/05/17 11/06/17 19:00 07:00 Intake Total 500 ml Balance 500 ml Intake Oral 500 ml Laboratory Tests Test 11/05/17 16:45 11/06/17 04:45 Erythrocyte Sedimentation Rate 2 MM/HR (0-20) C-Reactive Protein, Quantitative < 0.4 mg/dL (0.00-0.90) White Blood Count 12.7 K/UL (4.8-10.8) H Red Blood Count 4.80 M/UL (4.70-6.10) Hemoglobin 15.7 G/DL (14.2-18.0) Hematocrit 44.6 % (42.0-52.0) Mean Corpuscular Volume 93 FL (80-99) Mean Corpuscular Hemoglobin 32.7 PG (27.0-31.0) H Mean Corpuscular Hemoglobin Concent 35.2 G/DL (32.0-36.0) Red Cell Distribution Width 11.2 % (11.6-14.8) L Platelet Count 295 K/UL (150-450) Mean Platelet Volume 8.9 FL (6.5-10.1) Neutrophils (%) (Auto) 79.2 % (45.0-75.0) H Lymphocytes (%) (Auto) 14.9 % (20.0-45.0) L Monocytes (%) (Auto) 5.5 % (1.0-10.0) Eosinophils (%) (Auto) 0.1 % (0.0-3.0) Basophils (%) (Auto) 0.2 % (0.0-2.0) Sodium Level 140 MMOL/L (136-145) Potassium Level 4.0 MMOL/L (3.5-5.1) Chloride Level 108 MMOL/L (98-107) H Carbon Dioxide Level 26 MMOL/L (21-32) Anion Gap 6 mmol/L (5-15) Blood Urea Nitrogen 17 mg/dL (7-18) Creatinine 0.7 MG/DL (0.55-1.30) Estimat Glomerular Filtration Rate > 60 mL/min (>60) Glucose Level 139 MG/DL (74-106) H Calcium Level 8.7 MG/DL (8.5-10.1) Digoxin Level < 0.2 NG/ML (0.5-2.0) L Objective HEAD AND NECK: No JVD. LUNGS: Clear. CARDIOVASCULAR: Irregular S1 and S2 with no gallop or murmur. ABDOMEN: Soft. EXTREMITIES: No pitting edema. Juliocesar Boo MD Nov 06, 2017 16:22
[2017-11-06] MEDS: HYDROcodone/Acetamin 10/325 tab ORAL PRN (19:22)
[2017-11-06 20:00] VITALS: BP 122/79
[2017-11-06] MEDS: Tamsulosin 0.4mg cap ORAL SCH (20:17)
[2017-11-06] MEDS: Atorvastatin 20mg tab ORAL SCH (20:17)
[2017-11-06] MEDS: ALPRAZolam 0.25mg tab ORAL PRN (23:03)
[2017-11-07] VITALS: BP 120/71
[2017-11-07] MEDS: dilTIAZem HCl 90mg tab ORAL SCH ×3 (01:39→14:21)
[2017-11-07 04:00] VITALS: BP 111/66
[2017-11-07 07:27] LABS: BASOPHILS % (AUTO) 0.3 % (0.0-2.0); HEMATOCRIT 43.3 % (42.0-52.0); HEMOGLOBIN 15.1 G/DL (14.2-18.0); LYMPHOCYTES % (AUTO) 11.8 % (20.0-45.0); MEAN CORPUSCULAR VOLUME 93 FL (80-99); MONOCYTES % (AUTO) 5.4 % (1.0-10.0); NEUTROPHILS % (AUTO) 82.5 % (45.0-75.0); PLATELET COUNT 269 K/UL (150-450); RED BLOOD COUNT 4.65 M/UL (4.70-6.10); RED CELL DISTRIBUTION WIDTH 11.2 % (11.6-14.8)
[2017-11-07 07:43] LABS: ANION GAP 7 mmol/L (5-15); BLOOD UREA NITROGEN 14 mg/dL (7-18); CALCIUM 8.7 MG/DL (8.5-10.1); CARBON DIOXIDE 26 MMOL/L (21-32); CHLORIDE 106 MMOL/L (98-107); CREATININE 0.7 MG/DL (0.55-1.30); POTASSIUM 4.1 MMOL/L (3.5-5.1); SODIUM 139 MMOL/L (136-145)
[2017-11-07 08:00] VITALS: BP 106/89
[2017-11-07] MEDS: Aspirin Baby 81mg ORAL SCH (08:08)
[2017-11-07] MEDS: Norco 5mg/325mg tab ORAL PRN (08:16)
[2017-11-07] MEDS: Enoxaparin Sodium 300mg/3ml vial SUBQ SCH (08:17)
[2017-11-07] MEDS: cefTRIAXone 1 GM in D5W 110 ML IVPB SCH (08:22)
[2017-11-07] MEDS: Diclofenac 75mg tab ORAL SCH (08:22)
--- NOTE | 2017-11-07 11:38 | Infectious Diseases Prog Note ---
Assessment/Plan Assessment/Plan ASSESSMENT AND PLAN: 1. leukocytosis, ? source, no obvious infection or sepsis, no fevers - leukocytosis improved - CT negative, blood cultures negative, chest x-ray negative - discontinue rocphin - stable ID standpoint 2. The patient has atrial fibrillation with rapid ventricular response. 3. The patient has hypothyroidism. Continue thyroid supplementation. TSH level was normal. 4. Hypertension. 5. Hyperlipidemia. 6. No history of diabetes. 7. BPH. 8. Blood pressure and lipid treatment per primary consultants. 9. Allergic rhinitis. 10. Past medical history noted. 11. No known allergies. 12. Social history negative. 13. Family history noncontributory. 14. MAR was noted. 15. Case discussed with RN. 16. Case discussed with Dr. Cheema and Yaz Hardy NP 17. Orders were entered and noted. 18. Continue treatment per primary consultants. Subjective Constitutional: Reports: fatigue; Denies: fever HEENT: Denies: congestion Respiratory: Denies: shortness of breath Cardiovascular: Denies: chest pain, dyspnea on exertion Gastrointestinal/Abdominal: Denies: nausea, vomiting, diarrhea Genitourinary: Denies: dysuria, hematuria Neurologic: Denies: headache Psychiatric: Denies: depression Skin: Denies: rash Hematologic: Denies: bleeding Musculoskeletal: Denies: pain Allergies: Coded Allergies: No Known Allergies (Unverified , 11/01/17) Objective Vital Signs Last 24 Hour Vital Signs Date Time Temp Pulse Resp B/P (MAP) Pulse Ox O2 Delivery O2 Flow Rate FiO2 11/07/17 09:15 98.0 11/07/17 08:16 98.0 11/07/17 08:15 90 106/89 11/07/17 08:14 90 11/07/17 08:00 98.5 90 18 106/89 96 Room Air 98.5 11/07/17 04:00 77 11/07/17 04:00 98.0 78 18 111/66 96 Room Air 98.0 11/07/17 01:39 99 120/71 11/07/17 00:00 98.6 87 20 120/71 99 Room Air 98.6 11/07/17 00:00 99 11/06/17 20:22 86 122/79 11/06/17 20:00 98.3 80 18 122/79 96 Room Air 98.3 11/06/17 20:00 74 11/06/17 19:22 97.2 11/06/17 16:00 97.2 89 18 107/73 95 Room Air 97.2 11/06/17 16:00 85 11/06/17 14:35 102 129/84 11/06/17 12:00 97.4 102 18 129/84 95 Room Air 97.4 11/06/17 12:00 90 Height (Feet): 5 Height (Inches): 2.00 Weight (Pounds): 168 General Appearance: no acute distress HEENT: normocephalic, atraumatic, anicteric, mucous membranes moist Respiratory/Chest: lungs clear, normal breath sounds, no respiratory distress, no accessory muscle use Cardiovascular: normal rate, regular rhythm, no gallop/murmur, no JVD Abdomen: normal bowel sounds, soft, non tender, no organomegaly, non distended Genitourinary: other - no youssef Extremities: no cyanosis Skin: no rash 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 No evidence of diverticulitis Chest x-ray - no infiltrate or pna, report noted Microbiology Date/Time Source Procedure Growth Status 11/01/17 19:35 Blood Blood Culture - Final NO GROWTH AFTER 5 DAYS Complete Laboratory Tests Test 11/07/17 06:50 White Blood Count 12.0 K/UL (4.8-10.8) H Red Blood Count 4.65 M/UL (4.70-6.10) L Hemoglobin 15.1 G/DL (14.2-18.0) Hematocrit 43.3 % (42.0-52.0) Mean Corpuscular Volume 93 FL (80-99) Mean Corpuscular Hemoglobin 32.4 PG (27.0-31.0) H Mean Corpuscular Hemoglobin Concent 34.8 G/DL (32.0-36.0) Red Cell Distribution Width 11.2 % (11.6-14.8) L Platelet Count 269 K/UL (150-450) Mean Platelet Volume 8.5 FL (6.5-10.1) Neutrophils (%) (Auto) 82.5 % (45.0-75.0) H Lymphocytes (%) (Auto) 11.8 % (20.0-45.0) L Monocytes (%) (Auto) 5.4 % (1.0-10.0) Eosinophils (%) (Auto) 0.0 % (0.0-3.0) Basophils (%) (Auto) 0.3 % (0.0-2.0) Sodium Level 139 MMOL/L (136-145) Potassium Level 4.1 MMOL/L (3.5-5.1) Chloride Level 106 MMOL/L (98-107) Carbon Dioxide Level 26 MMOL/L (21-32) Anion Gap 7 mmol/L (5-15) Blood Urea Nitrogen 14 mg/dL (7-18) Creatinine 0.7 MG/DL (0.55-1.30) Estimat Glomerular Filtration Rate > 60 mL/min (>60) Glucose Level 130 MG/DL (74-106) H Calcium Level 8.7 MG/DL (8.5-10.1) Current Medications Medications (Trade) Dose Ordered Sig/Adrienne Route PRN Reason Start Time Stop Time Status Last Admin Dose Admin Acetaminophen/ Hydrocodone Bitart ([place] 10/325) 1 tab Q6H PRN ORAL Moderate Pain (Pain Scale 4-6) 11/04/17 16:30 11/11/17 16:29 11/06/17 19:22 Acetaminophen/ Hydrocodone Bitart ([place] 5/325) 1 tab Q6H PRN ORAL Mild Pain (Pain Scale 1-3) 11/04/17 16:30 11/11/17 16:29 11/07/17 08:16 Alprazolam (Xanax) 0.25 mg DAILYPRN PRN ORAL For Anxiety 11/04/17 20:00 11/11/17 19:59 11/06/17 23:03 Aspirin (ASA) 81 mg DAILY ORAL 11/05/17 09:00 12/05/17 08:59 11/07/17 08:08 Atorvastatin Calcium (Lipitor) 20 mg BEDTIME ORAL 11/04/17 21:00 12/04/17 20:59 11/06/17 20:17 Diclofenac Sodium (Voltaren) 75 mg BID ORAL 11/05/17 09:00 12/05/17 08:59 11/05/17 08:28 Digoxin (Lanoxin) 0.25 mg DAILY ORAL 11/06/17 09:00 12/06/17 08:59 11/07/17 08:14 Diltiazem HCl (Cardizem) 90 mg Q6H ORAL 11/05/17 08:00 12/05/17 07:59 11/07/17 08:15 Enoxaparin Sodium (Lovenox) 75 mg Q12H SUBQ 11/04/17 09:00 12/04/17 08:59 11/07/17 08:17 Levothyroxine Sodium (Synthroid) 50 mcg DAILY@0630 ORAL 11/05/17 06:30 12/05/17 06:29 11/07/17 06:08 Lidocaine (Lidoderm 5% PATCH) 1 patch DAILY@2100 TDERMAL 11/05/17 21:00 12/04/17 20:59 11/06/17 20:17 Meloxicam (Mobic) 15 mg DAILYPRN PRN ORAL Severe Breakthru Pain (>7) 11/04/17 21:45 12/04/17 21:44 11/04/17 21:46 Nitroglycerin (Ntg) 0.4 mg Q5M PRN SL Prn Chest Pain 11/05/17 08:30 12/05/17 08:29 11/05/17 09:32 Pantoprazole (Protonix) 40 mg DAILY ORAL 11/05/17 09:00 12/05/17 08:59 11/07/17 08:09 Tamsulosin HCl (Flomax) 0.4 mg BEDTIME ORAL 11/04/17 21:00 12/04/17 20:59 11/06/17 20:17 Zolpidem Tartrate (Ambien) 5 mg HSPRN PRN ORAL Insomnia 11/04/17 20:00 11/11/17 19:59 Judith Drake MD Nov 07, 2017 11:38
[2017-11-07 12:00] VITALS: BP 136/57
[2017-11-07] MEDS ORDERED: LANOXIN250 MCG ORAL (13:31)
[2017-11-07] MEDS ORDERED: ELIQUIS5 MG PO (13:31)
[2017-11-07] MEDS ORDERED: CARDIZEM90 MG ORAL (13:31)
--- NOTE | 2017-11-07 13:39 | General Progress Note ---
Assessment/Plan Problem List: (1) Atypical chest pain ICD Codes: R07.89 - Other chest pain SNOMED: 142609327 (2) HTN (hypertension) ICD Codes: I10 - Essential (primary) hypertension SNOMED: 30631649 (3) HLD (hyperlipidemia) ICD Codes: E78.5 - Hyperlipidemia, unspecified SNOMED: 13716432 (4) Allergic rhinitis ICD Codes: J30.9 - Allergic rhinitis, unspecified SNOMED: 82475803 (5) Leukocytosis ICD Codes: D72.829 - Elevated white blood cell count, unspecified SNOMED: 866501991, 824350742 (6) Atrial fibrillation with RVR ICD Codes: I48.91 - Unspecified atrial fibrillation SNOMED: 110498951413003 Status: stable, progressing Assessment/Plan - Cardiology consulted, appreciate rec's - ID consulted for elevated WBC, unknown source, appreciate rec's - EKG showing AFcRVR - Trend trops. Trops negative - ACS ruled out. - TTE showing LVEF 55% with no wall motion abnormality - Venous duplex BLE negative - start empiric IV ceftriaxone - CXR negative - f/u blood cx, UA -- negative - trend WBC 17 --> 12 --> 15 --> 12 --> 14 --> 12 --> 12 - CT c/a/p largely unremarkable - dc abx - s/p IV diltiazem, now on cardizem 90mg q6hr and digoxin 0.25mg qd - continue lovenox 75mg BID. consider switching to NOAC upon discharge - check AM lipid panel and A1c - TSH wnl - resume home meds - pain control and supportive care Cleared per ID and pulmonology. Thank you, Dr. Cheema, for this consultation. DVT Prophylaxis: on lovenox Code Status: Full Hospital Classification Declaration: Based on this initial evaluation, and depending on the patient's clinical course, I anticipate that this patient will require hospitalization for 1-2 days for a.fibb with RVR and close respiratory/ hemodynamic monitoring. Disposition: Once the patient is stable to leave the hospital, I anticipate the patient will likely be discharged to the following environment: home with HH I spent 31 minutes on this patient's case, and 17 minutes were dedicated to counseling and/or care coordination. Discussed with patient/family, nursing staff, SW/CM, primary, ID and cardiology regarding clinical status, treatment course, and disposition planning. Time of note may not reflect time of encounter. Case d/w Dr. Bernal, who agrees to plan of care. Subjective Date patient seen: Nov 07, 2017 Time patient seen: 13:35 Allergies: Coded Allergies: No Known Allergies (Unverified , 11/01/17) Subjective - CT c/a/p reviewed and noted to have a tiny bulla in RLL but insignificant per pulm - continues to remain in a. fibb but rate controlled today - WBC 12, afebrile - denies cp, sob Objective Last 24 Hour Vital Signs Date Time Temp Pulse Resp B/P (MAP) Pulse Ox O2 Delivery O2 Flow Rate FiO2 11/07/17 09:15 98.0 11/07/17 08:16 98.0 11/07/17 08:15 90 106/89 11/07/17 08:14 90 11/07/17 08:00 98.5 90 18 106/89 96 Room Air 98.5 11/07/17 04:00 77 11/07/17 04:00 98.0 78 18 111/66 96 Room Air 98.0 11/07/17 01:39 99 120/71 11/07/17 00:00 98.6 87 20 120/71 99 Room Air 98.6 11/07/17 00:00 99 11/06/17 20:22 86 122/79 11/06/17 20:00 98.3 80 18 122/79 96 Room Air 98.3 11/06/17 20:00 74 11/06/17 19:22 97.2 11/06/17 16:00 97.2 89 18 107/73 95 Room Air 97.2 11/06/17 16:00 85 11/06/17 14:35 102 129/84 Intake and Output 11/06/17 11/07/17 19:00 07:00 Intake Total 740 ml 200 ml Balance 740 ml 200 ml Intake Oral 740 ml 200 ml # Voids 7 Laboratory Tests 11/07/17 06:50: White Blood Count 12.0H, Red Blood Count 4.65L, Hemoglobin 15.1, Hematocrit 43.3 , Mean Corpuscular Volume 93, Mean Corpuscular Hemoglobin 32.4H, Mean Corpuscular Hemoglobin Concent 34.8, Red Cell Distribution Width 11.2L, Platelet Count 269, Mean Platelet Volume 8.5, Neutrophils (%) (Auto) 82.5H, Lymphocytes (%) (Auto) 11.8L, Monocytes (%) (Auto) 5.4, Eosinophils (%) (Auto) 0.0, Basophils (%) (Auto) 0.3, Sodium Level 139, Potassium Level 4.1, Chloride Level 106, Carbon Dioxide Level 26, Anion Gap 7, Blood Urea Nitrogen 14, Creatinine 0.7, Estimat Glomerular Filtration Rate > 60, Glucose Level 130H, Calcium Level 8.7 Height (Feet): 5 Height (Inches): 2.00 Weight (Pounds): 168 General Appearance: no apparent distress, alert EENT: PERRL/EOMI, normal ENT inspection Neck: non-tender, normal alignment, supple Cardiovascular: normal peripheral pulses, regularly irregular Respiratory/Chest: chest wall non-tender, lungs clear, normal breath sounds Abdomen: normal bowel sounds, non tender, soft 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
[2017-11-07 16:00] VITALS: BP 128/78
--- NOTE | 2017-11-07 16:25 | Cardiac Electrophysiology PN ---
Assessment/Plan Assessment/Plan 1. Atrial fibrillation with rapid ventricular response. The patient was ruled out for myocardial infarction. Ejection fraction is normal. His urine toxicology screen is positive for benzodiazepine. Change Lovenox 75 mg subcutaneous b.i.d. to Eliquis 5 bid and Cardizem 90 mg every 6 hours to Cardizem CD 360 daily and Digoxin 0.25 daily 2. Hypertension, continue Cardizem 3. Hypothyroidism, on Synthroid. 4. Hyperlipidemia, on Lipitor. 5. Allergic rhinitis. 6. Leukocytosis, currently on antibiotics. ABDIRIZAK RN and Antony Subjective Subjective Feeling better. No CP or SOB.Remains in atrial fib but rate controlled now. Objective Last 24 Hour Vital Signs Date Time Temp Pulse Resp B/P (MAP) Pulse Ox O2 Delivery O2 Flow Rate FiO2 11/07/17 14:21 77 136/67 11/07/17 12:00 75 11/07/17 12:00 97.3 77 18 136/57 96 Room Air 97.3 11/07/17 09:15 98.0 11/07/17 08:16 98.0 11/07/17 08:15 90 106/89 11/07/17 08:14 90 11/07/17 08:00 121 11/07/17 08:00 98.5 90 18 106/89 96 Room Air 98.5 11/07/17 04:00 77 11/07/17 04:00 98.0 78 18 111/66 96 Room Air 98.0 11/07/17 01:39 99 120/71 11/07/17 00:00 98.6 87 20 120/71 99 Room Air 98.6 11/07/17 00:00 99 11/06/17 20:22 86 122/79 11/06/17 20:00 98.3 80 18 122/79 96 Room Air 98.3 11/06/17 20:00 74 11/06/17 19:22 97.2 Intake and Output 11/06/17 11/07/17 18:59 06:59 Intake Total 740 ml 200 ml Balance 740 ml 200 ml Intake Oral 740 ml 200 ml # Voids 7 Laboratory Tests Test 11/07/17 06:50 White Blood Count 12.0 K/UL (4.8-10.8) H Red Blood Count 4.65 M/UL (4.70-6.10) L Hemoglobin 15.1 G/DL (14.2-18.0) Hematocrit 43.3 % (42.0-52.0) Mean Corpuscular Volume 93 FL (80-99) Mean Corpuscular Hemoglobin 32.4 PG (27.0-31.0) H Mean Corpuscular Hemoglobin Concent 34.8 G/DL (32.0-36.0) Red Cell Distribution Width 11.2 % (11.6-14.8) L Platelet Count 269 K/UL (150-450) Mean Platelet Volume 8.5 FL (6.5-10.1) Neutrophils (%) (Auto) 82.5 % (45.0-75.0) H Lymphocytes (%) (Auto) 11.8 % (20.0-45.0) L Monocytes (%) (Auto) 5.4 % (1.0-10.0) Eosinophils (%) (Auto) 0.0 % (0.0-3.0) Basophils (%) (Auto) 0.3 % (0.0-2.0) Sodium Level 139 MMOL/L (136-145) Potassium Level 4.1 MMOL/L (3.5-5.1) Chloride Level 106 MMOL/L (98-107) Carbon Dioxide Level 26 MMOL/L (21-32) Anion Gap 7 mmol/L (5-15) Blood Urea Nitrogen 14 mg/dL (7-18) Creatinine 0.7 MG/DL (0.55-1.30) Estimat Glomerular Filtration Rate > 60 mL/min (>60) Glucose Level 130 MG/DL (74-106) H Calcium Level 8.7 MG/DL (8.5-10.1) Objective HEAD AND NECK: No JVD. LUNGS: Clear. CARDIOVASCULAR: Irregular S1 and S2 with no gallop or murmur. ABDOMEN: Soft. EXTREMITIES: No pitting edema. Juliocesar Boo MD Nov 07, 2017 16:25
[2017-11-07] MEDS ORDERED: CARDIZEM CD180 MG ORAL (16:52)
--- NOTE | 2017-11-07 17:49 | Pulmonology Progress Note ---
Assessment/Plan Problems: (1) Atrial fibrillation with RVR (2) Chest pain (3) ACS (acute coronary syndrome) Assessment/Plan ASSESSMENT: The patient is a 67-year-old male, nonsmoker with history of hypertension, hyperlipidemia, hypothyroidism, presenting with atypical chest pain in AFib with RVR. It is unclear if he has had AFib in the past or if this is new. I agree with the ER's plan to anticoagulate the patient. We will admit him to the hospital, rule out ACS, work up his atrial fibrillation more. He will be seen in consultation with Electrophysiology service. PROBLEM LIST: 1. Atypical chest pain. 2. Atrial fibrillation, admitted with RVR, now rate controlled. 3. Hypertension. 4. Hyperlipidemia. 5. Hypothyroidism. 6. BPH. 7. Chronic neck pain/DDD TREATMENT PLAN: 1. Dig + Dilt per EP, now on Eliquis 2. Optimize pulmonary hygiene/mobilize as tolerated 3. Monitor volumes. 4. Observe off Abx per ID 5. Pain control/supportive care 6. DVT prophylaxis: A/C 7. The patient is Full Code 8. Stable from a pulmonary standpoint to D/C home. Subjective Allergies: Coded Allergies: No Known Allergies (Unverified , 11/01/17) Subjective Seen earlier AFVSS, rate controlled, WCt better, CT reviewed No SOB, no F/C, no CP Objective Last 24 Hour Vital Signs Date Time Temp Pulse Resp B/P (MAP) Pulse Ox O2 Delivery O2 Flow Rate FiO2 11/07/17 16:00 97.8 92 18 128/78 96 Room Air 97.8 11/07/17 14:21 77 136/67 11/07/17 12:00 75 11/07/17 12:00 97.3 77 18 136/57 96 Room Air 97.3 11/07/17 09:15 98.0 11/07/17 08:16 98.0 11/07/17 08:15 90 106/89 11/07/17 08:14 90 11/07/17 08:00 121 11/07/17 08:00 98.5 90 18 106/89 96 Room Air 98.5 11/07/17 04:00 77 11/07/17 04:00 98.0 78 18 111/66 96 Room Air 98.0 11/07/17 01:39 99 120/71 11/07/17 00:00 98.6 87 20 120/71 99 Room Air 98.6 11/07/17 00:00 99 11/06/17 20:22 86 122/79 11/06/17 20:00 98.3 80 18 122/79 96 Room Air 98.3 11/06/17 20:00 74 11/06/17 19:22 97.2 Intake and Output 11/06/17 11/07/17 19:00 07:00 Intake Total 740 ml 200 ml Balance 740 ml 200 ml Intake Oral 740 ml 200 ml # Voids 7 General Appearance: WD/WN, no acute distress HEENT: normocephalic, atraumatic, mucous membranes moist Respiratory/Chest: chest wall non-tender, lungs clear, normal breath sounds, no respiratory distress Cardiovascular: normal peripheral pulses, irregularly irregular Abdomen: normal bowel sounds, soft, non tender, no organomegaly, non distended , no mass Extremities: no cyanosis, no clubbing, no edema Laboratory Tests 11/07/17 06:50: White Blood Count 12.0H, Red Blood Count 4.65L, Hemoglobin 15.1, Hematocrit 43.3 , Mean Corpuscular Volume 93, Mean Corpuscular Hemoglobin 32.4H, Mean Corpuscular Hemoglobin Concent 34.8, Red Cell Distribution Width 11.2L, Platelet Count 269, Mean Platelet Volume 8.5, Neutrophils (%) (Auto) 82.5H, Lymphocytes (%) (Auto) 11.8L, Monocytes (%) (Auto) 5.4, Eosinophils (%) (Auto) 0.0, Basophils (%) (Auto) 0.3, Sodium Level 139, Potassium Level 4.1, Chloride Level 106, Carbon Dioxide Level 26, Anion Gap 7, Blood Urea Nitrogen 14, Creatinine 0.7, Estimat Glomerular Filtration Rate > 60, Glucose Level 130H, Calcium Level 8.7 Current Medications Medications (Trade) Dose Ordered Sig/Adrienne Route PRN Reason Start Time Stop Time Status Last Admin Dose Admin Acetaminophen/ Hydrocodone Bitart ([place] 10/325) 1 tab Q6H PRN ORAL Moderate Pain (Pain Scale 4-6) 11/04/17 16:30 11/11/17 16:29 11/06/17 19:22 Acetaminophen/ Hydrocodone Bitart ([place] 5/325) 1 tab Q6H PRN ORAL Mild Pain (Pain Scale 1-3) 11/04/17 16:30 11/11/17 16:29 11/07/17 08:16 Alprazolam (Xanax) 0.25 mg DAILYPRN PRN ORAL For Anxiety 11/04/17 20:00 11/11/17 19:59 11/06/17 23:03 Apixaban (Eliquis) 5 mg BID ORAL 11/08/17 09:00 12/08/17 08:59 Apixaban (Eliquis) 5 mg ONCE ORAL 11/07/17 21:00 11/07/17 22:00 Aspirin (ASA) 81 mg DAILY ORAL 11/05/17 09:00 12/05/17 08:59 11/07/17 08:08 Atorvastatin Calcium (Lipitor) 20 mg BEDTIME ORAL 11/04/17 21:00 12/04/17 20:59 11/06/17 20:17 Digoxin (Lanoxin) 0.25 mg DAILY ORAL 11/06/17 09:00 12/06/17 08:59 11/07/17 08:14 Diltiazem HCl (Cardizem CD) 360 mg DAILY ORAL 11/08/17 09:00 12/08/17 08:59 Diphenhydramine HCl (Benadryl) 25 mg Q6H PRN ORAL Itching 11/07/17 14:10 12/07/17 14:09 Levothyroxine Sodium (Synthroid) 50 mcg DAILY@0630 ORAL 11/05/17 06:30 12/05/17 06:29 11/07/17 06:08 Lidocaine (Lidoderm 5% PATCH) 1 patch DAILY@2100 TDERMAL 11/05/17 21:00 12/04/17 20:59 11/06/17 20:17 Meloxicam (Mobic) 15 mg DAILYPRN PRN ORAL Severe Breakthru Pain (>7) 11/04/17 21:45 12/04/17 21:44 11/04/17 21:46 Nitroglycerin (Ntg) 0.4 mg Q5M PRN SL Prn Chest Pain 11/05/17 08:30 12/05/17 08:29 11/05/17 09:32 Pantoprazole (Protonix) 40 mg DAILY ORAL 11/05/17 09:00 12/05/17 08:59 11/07/17 08:09 Tamsulosin HCl (Flomax) 0.4 mg BEDTIME ORAL 11/04/17 21:00 12/04/17 20:59 11/06/17 20:17 Zolpidem Tartrate (Ambien) 5 mg HSPRN PRN ORAL Insomnia 11/04/17 20:00 11/11/17 19:59 Ben Cheema MD Nov 07, 2017 17:49
[2017-11-07] MEDS ORDERED: Eliquis 2.5mg tablet ORAL SCH (21:00)
[2017-11-08] MEDS ORDERED: Eliquis 2.5mg tablet ORAL SCH (09:00)
[2017-11-08] MEDS ORDERED: dilTIAZem HCl CD 180mg cap ORAL SCH (09:00)
--- NOTE | 2017-11-09 22:21 | Diagnostic Imaging Report ---
APPROVED REPORT CPT Code: 27832 Present Symptoms Comments: BILATERAL LEGS PAIN. BILATERAL: Imaging reveals a patent deep venous system bilaterally. There is no evidence of thrombus within the femoral, popliteal or tibial segments. The greater saphenous veins are also within normal limits. Doppler indicates normal spontaneous flow within these segments.
--- NOTE | 2017-11-10 11:03 | Discharge Summary ---
Discharge Summary Discharge Summary _ DATE OF ADMISSION: 11/01/2017 DATE OF DISCHARGE: 11/07/2017 REASON FOR ADMISSION: 67 years old male, nonsmoker, with a history of hypertension, hyperlipidemia, hypothyroidism, BPH, presented with complaint of chest pain and shortness of breath . He initially signed AMA and left but came back due to the left-sided chest pain , worse with exertion and associated shortness of breath and palpitations. He denied fever and chills, headaches, dizziness, no nausea or vomiting, no diarrhea. Patient had no known history of A. fib but on monitor appeared to be in atrial fibrillation with rapid ventricular response. Vital signs revealed tachycardia,. blood pressure was stable, pulse oximetry was stable on room air . Laboratory workup revealed leukocytosis WBC 17.3, urine toxicology screen was positive for benzodiazepine. Troponin was negative. Urinalysis revealed no evidence of UTI , lactic acid 1.8 EKG revealed atrial fibrillation with rapid ventricular response. Chest x-ray revealed no acute cardiopulmonary pathology Patient admitted with diagnoses of atrial fibrillation with rapid ventricular response, chest pain ,rule out acute coronary syndrome CONSULTANTS: beer cooler Dr. Ema MERLOS specialist Dr. Drake Internal medicine [facility] COURSE: Patient admitted. Patient initially started on IV diltiazem to control the rate. Patient started on anticoagulation with Lovenox . [facility] closely followed . Rate was controlled with IV Diltiazem, which was eventually discontinued, and patient was switched to oral Cardizem and digoxin. Heart rate controlled. Anticoagulation initially started with Lovenox and then changed to NOAC/with Eliquis. Serial troponin were negative. EKG revealed atrial fibrillation ,no acute ischemic changes . Patient was ruled out for acute coronary syndrome. Chest pain was atypical , possibly due to A. fib with rapid ventricular response , possible element of anxiety, since patient had anxiety disorder. Echocardiogram revealed preserved ejection fraction of 55a%, no evidence of wall motion abnormality. Venous duplex bilateral lower [id number] was negative. Patient initially started on empiric antibiotics. Blood culture were negative, chest x-ray was negative, urinalysis was negative. Infectious disease specialist closely followed. Leukocytosis trending down ,afebrile. No clear etiology of leukocytosis. CT of the chest ,abdomen,and pelvis was unremarkable . Antibiotics were discontinued per ID recommendations, who suggested to observe patient off antibiotics. Lipid panel revealed elevated LDL 134 , continue statin .Encourage compliance. TSH was within normal limits, continue current dose of on levothyroxine. Hemoglobin A1c 5.9 . Patient was educated on no concentrated sweets, low-cholesterol , low-fat cardiac diet. Flomax and Proscar continued Supportive care provided Pain management was addressed Bowel regimen instituted Patient clinically improved and was stable for discharge home wit home health services FINAL DIAGNOSES: Atrial fibrillation with rapid ventricular response Atypical chest pain Hyperlipidemia Hypertension Leukocytosis, improved Hypothyroidism Chronic neck pain/DDD BPH DISCHARGE MEDICATIONS: See Medication Reconciliation list. DISCHARGE INSTRUCTIONS: Patient was discharged home with home health services. Follow up with primary care provider in one week I have been assigned to dictate discharge summary for this account. I was not involved in the patient's management. Phuong Chau NP Nov 10, 2017 11:03
== END 2017-11-07 18:51 | disposition home health service (06) | DRG 872 ==
LOC: EDBD 16:59 → EMR 17:30 → 2E 18:23 → UNDOADMIN 18:23 → EDBEDREQ 20:00 → UNDODISIN 11-04 15:15
DX: A41.9 Sepsis, unspecified organism (principal); I48.91 Unspecified atrial fibrillation; R07.89 Other chest pain; J30.9 Allergic rhinitis, unspecified; I10 Essential (primary) hypertension; E78.5 Hyperlipidemia, unspecified; N40.0 Benign prostatic hyperplasia without lower urinary tract symptoms; E03.9 Hypothyroidism, unspecified; M54.2 Cervicalgia
CPT/HCPCS: 36415; 71045; 71260; 74177; 80048; 80053; 80061; 80162; 80307; 81003; 82550; 82553; 83036; 83605; 83690; 83880; 84439; 84443; 84484; 85025; 85379; 85610; 85651; 85730; 86140; 87040; 93005; 93306; 93970; 96360; 96374; 99284; 99285

== ENCOUNTER 2019-04-18 18:47 | Emergency (ER) | payer MEDICARE, MEDICAID ==
[~2019-04-18] VITALS: Ht 167.6 cm; Wt 77.1 kg
[~2019-04-18 18:47] MED LIST: ATORVASTATIN CA20 MG ORAL; CARDIZEM CD180 MG ORAL; CARDIZEM90 MG ORAL; CYMBALTA30 MG ORAL; DICLOFENAC SODI75 MG ORAL; ELIQUIS5 MG PO; LANOXIN250 MCG ORAL; LEVOTHYROXINE75 MCG ORAL; LOSARTAN POTASS50 MG ORAL; MELOXICAM15 MG PO; NORCO 10-325 T1 EACH ORAL; PANTOPRAZOLE SO40 MG ORAL; PROSCAR5 MG ORAL; TAMSULOSIN HCL0.4 MG ORAL; XANAX2 MG ORAL
[2019-04-18 18:51] VITALS: BP 158/92
--- NOTE | 2019-04-18 18:51 | NUR ---
ED Nurse Note: Pt arrived to ED on a wheelchair, brought by EMT; with c/o of severe pain on RT Groin, sudden onset, today. Pt has hx of hernia. Pt has an allergy to demerol. Placed on bed and hosp gown, hooked to cardiac monitor technician. will continue to monitor.
--- NOTE | 2019-04-18 18:58 | NUR ---
ED Nurse Note: received report from STEVE Sandhu. pt in bed resting , VSS. Currently awaiting for CT Addendum: 04/18/19 at 1859 by DANIEL ED Nurse Note: received report from STEVE Sandhu. pt in bed resting , VSS.
--- NOTE | 2019-04-18 18:59 | NUR ---
HAND-OFF: Report given to talon weeks.
--- NOTE | 2019-04-18 18:59 | NUR ---
ED Nurse Note: pt iv line established, patent and intact; lab specimen sent to lab. ermd at bedside.
[2019-04-18] MEDS ORDERED: Omnipaque-300 100ml vial INJ PRN (19:00)
[2019-04-18] MEDS ORDERED: Morphine Sulfate 2mg/ml Inj(IV/IM USE ONLY) IVP ONE (19:00)
[2019-04-18] MEDS ORDERED: Morphine Sulfate 2mg/ml Inj(IV/IM USE ONLY) ONE (19:04)
[2019-04-18 19:11] LABS: BASOPHILS % (AUTO) 0.7 % (0.0-2.0); EOSINOPHILS % (AUTO) 0.1 % (0.0-3.0); HEMATOCRIT 46.1 % (42.0-52.0); HEMOGLOBIN 15.8 G/DL (14.2-18.0); LYMPHOCYTES % (AUTO) 15.4 % (20.0-45.0); MEAN CORPUSCULAR VOLUME 94 FL (80-99); MONOCYTES % (AUTO) 5.8 % (1.0-10.0); NEUTROPHILS % (AUTO) 77.9 % (45.0-75.0); PLATELET COUNT 276 K/UL (150-450); RED CELL DISTRIBUTION WIDTH 12.3 % (11.6-14.8); WHITE BLOOD COUNT 15.2 K/UL (4.8-10.8)
[2019-04-18] MEDS ORDERED: Ketorolac 30mg Inj ONE (19:12)
[2019-04-18] MEDS ORDERED: Ketorolac 30mg Inj IV ONE (19:15)
--- NOTE | 2019-04-18 19:16 | NUR ---
ED Nurse Note: pt unable to privide urine sample at this time.
[2019-04-18 19:21] LABS: ANION GAP 8 mmol/L (5-15); BLOOD UREA NITROGEN 17 mg/dL (7-18); CALCIUM 9.1 MG/DL (8.5-10.1); CARBON DIOXIDE 26 MMOL/L (21-32); CHLORIDE 100 MMOL/L (98-107); CREATININE 0.7 MG/DL (0.55-1.30); POTASSIUM 3.9 MMOL/L (3.5-5.1); SODIUM 134 MMOL/L (136-145)
[2019-04-18 19:25] LABS: ALANINE AMINOTRANSFERASE 35 U/L (12-78); ALBUMIN 3.6 G/DL (3.4-5.0); ALBUMIN/GLOBULIN RATIO 1.1 (1.0-2.7); ALKALINE PHOSPHATASE 62 U/L (46-116); ASPARTATE AMINO TRANSFERASE 15 U/L (15-37); BILIRUBIN,TOTAL 0.4 MG/DL (0.2-1.0)
--- NOTE | 2019-04-18 19:42 | NUR ---
ED Nurse Note: pt taken to CT
[2019-04-18] MEDS ORDERED: fentaNYL 100 mcg/2 mL IV ONE ×2 (19:45→20:45)
--- NOTE | 2019-04-18 20:05 | NUR ---
ED Nurse Note: Back from CT
--- NOTE | 2019-04-18 20:36 | Diagnostic Imaging Report ---
Indication: Abdominal pain Technique: Continuous helical transaxial imaging of the abdomen and pelvis was obtained from the lung bases to the pubic symphysis during intravenous contrast administration. Coronal 2-D reformats were also obtained. Study obtained in a Siemens sensation [address] Automatic Exposure Control was utilized. Total Dose length Product (DLP): 965.[address] Dose Index Volume (CTDIvol): 16.4 mGy Comparison: None Findings: Lung bases are clear. The liver and spleen gallbladder pancreas appear normal. There is perinephric stranding which is nonspecific. There is no hydronephrosis. Aorta is moderately calcified. There are diverticula throughout the colon especially in the descending and sigmoid colon. No evidence of acute diverticulitis. There is no evidence of bowel obstruction, free fluid or free air. Urinary bladder is unremarkable. There is no evidence of acute appendicitis. IMPRESSION: No acute findings. Multiple incidental findings as above [facility] has communicated the preliminary results to the Emergency Department. Their findings are largely concordant with this report. The CT scanner at [facility] is accredited by the [employer] and the scans are performed using dose optimization techniques as appropriate to a performed exam including Automatic Exposure control.
[2019-04-18] MEDS ORDERED: Ciprofloxacin 500mg tab ORAL ONE (20:45)
[2019-04-18] MEDS ORDERED: metroNIDAZOLE 500mg tab ORAL ONE (20:45)
--- NOTE | 2019-04-18 20:50 | NUR ---
ED Nurse Note: Urine sample sent down to lab
[2019-04-18 21:20] LABS: APPEARANCE,URINE CLEAR; BILIRUBIN, URINE NEGATIVE (NEGATIVE); COLOR,URINE PALE YELLOW; GLUCOSE, URINE (UA) NEGATIVE (NEGATIVE); KETONES,URINE 2+ (NEGATIVE); LEUKOCYTE ESTERASE ,URINE NEGATIVE (NEGATIVE); NITRITE,URINE NEGATIVE (NEGATIVE); PH,URINE 8 (4.5-8.0); PROTEIN,URINE 1+ (NEGATIVE); UROBILINOGEN,URINE NORMAL MG/DL (0.0-1.0)
[2019-04-18 21:23] VITALS: BP 150/88
--- NOTE | 2019-04-18 21:23 | NUR ---
ER DISCHARGE NOTE: Patient is cleared to be discharged per ERMD, pt is aox4, on room air, with stable vital signs. pt was given dc and prescription instructions, pt was able to verbalize understanding, pt id band and iv site removed without complications. pt is able to ambulate with steady gait. pt took all belongings.
--- NOTE | 2019-04-18 21:29 | Emergency Room Report ---
History of Present Illness General Chief Complaint: Pain Source: Patient Present Illness Allergies: Coded Allergies: MEPERIDINE (Verified Allergy, Unknown, 04/18/19) Nursing Documentation-PMH Past Medical History: No History, Except For Physical Exam Vital Signs Date Time Temp Pulse Resp B/P (MAP) Pulse Ox O2 Delivery O2 Flow Rate FiO2 04/18/19 18:42 97.9 86 17 148/83 (104) 99 Room Air Medical Decision Making Diagnostic Impression: Primary Impression: Diverticulosis Last Vital Signs Date Time Temp Pulse Resp B/P (MAP) Pulse Ox O2 Delivery O2 Flow Rate FiO2 04/18/19 21:23 98.0 84 18 150/88 98 Room Air Disposition: HOME, SELF-CARE Condition: Stable Scripts Ranitidine Hcl* (ZANTAC*) 150 Mg Tablet 150 MG ORAL TWICE A DAY, #30 TAB Prov: Jesu Hernandes MD 04/18/19 Simethicone* (SIMETHICONE*) 80 Mg Tab.chew 80 MG ORAL Q8H PRN for GAS PAIN, #20 TAB 0 Refills Prov: Jesu Hernandes MD 04/18/19 Metronidazole* (FLAGYL*) 500 Mg Tablet 500 MG ORAL THREE TIMES A DAY, #21 TAB Prov: Jesu Hernandes MD 04/18/19 Ciprofloxacin Hcl* (CIPROFLOXACIN HCL*) 500 Mg Tablet 500 MG ORAL Q12H, #14 TAB 0 Refills Prov: Jesu Hernandes MD 04/18/19 Referrals: NON PHYSICIAN (PCP) Deepti Velez [facility]. [facility] Patient Instructions: Diverticulosis Jesu Hernandes MD Apr 18, 2019 21:29
== END 2019-04-18 21:23 | disposition home or self-care (01) ==
LOC: EDBD 18:47 → MERGE 20:13 → EMR 20:13
DX: K57.90 Diverticulosis of intestine, part unspecified, without perforation or abscess without bleeding (principal); Z88.8 Allergy status to other drugs, medicaments and biological substances
CPT/HCPCS: 36415; 74177; 80053; 81003; 83690; 85025; 96361; 96374; 96375; 96376; 99284; J1885; J3010; Q9967; S0028